=== PATIENT | male | born 1975 | race Caucasian/White ===

== ENCOUNTER 2016-11-17 13:56 | Emergency (ER) | payer OTHER, SELFPAY ==
[2016-11-17] MEDS ORDERED: Compazine 10 MG/2 ML IV ONE (14:25)
[2016-11-17] MEDS ORDERED: Sodium Chloride 0.9% 1000 ML 1,000 ML IV SCH (14:30)
[2016-11-17] MEDS ORDERED: Compazine 10 MG/2 ML ONE (14:35)
[2016-11-17] MEDS ORDERED: Sodium Chloride 0.9% 1000 ML 1,000 ML ONE (14:35)
[2016-11-17 14:42] LABS: BASOPHIL % 0.4 % (0.0-0.4); Eosinophil % 4.4 % (0.00-5.0); Granulocytes % 45.8 % (36.0-66.0); Lymphocytes % 37.8 % (24.0-44.0); Mean Cell Volume 86.9 fl (78-100); Mean Corpuscular Hemoglobin 29.4 pg (26-32); Mean Platelet Volume 9.5 fl (6-9.5); Monocytes % 11.6 % (0.0-12.0); Platelet Count 226 K/mm3 (150-450); Red Blood Count 4.89 M/mm3 (4.1-5.6); Red Cell Distribution Width 13.8 % (11.5-14.0); White Blood Count 8.1 K/mm3 (4.0-10.5)
--- NOTE | 2016-11-17 15:05 | ERPHSYRPT ---
- History of Present Illness Time Seen by Provider: 11/17/16 14:05 Source: patient Exam Limitations: no limitations Patient Subjective Stated Complaint: frontal headache x1 week Triage Nursing Assessment: frontal headache for one week. vomiting 3x daily for 2 days. photosensivity. delayed speech with appropriate answers. pupils danish. skin warm and dry. moist oral membranes Physician History: allyson tripped and fell at home a week ago hitting the back of his head; no loc ; no neck pain; no seizures; no prior hx; saw stars; developed a frontal LONG 3-4 days ago; worst LONG of life; no hx of LONG; nwo with N&V with LONG; no fever; no visual disturbance; sensitive to light and noises; no hx of migraines; LONG is throbbing 08/08 Occurred: last week (hiot head), days ago (3-4 days ago LONG started) Severity: severe Head Injury Location: frontal Method of Injury: direct blow Loss of Consciousness: no loss of consciousness, dazed Associated Symptoms: nausea, vomiting, headaches Allergies/Adverse Reactions: No Known Drug Allergies Allergy (Verified 11/17/16 14:15) Home Medications: Clonazepam 0.5 mg [Klonopin 0.5 MG] 0.5 mg PO TIDPRN PRN 03/09/16 [History ] Omeprazole [Prilosec] 20 mg PO DAILY 03/09/16 [History] Paliperidone Palmitate [Invega Sustenna 156 mg] 156 mg IM UD 03/09/16 [History] Metformin HCl 500 mg [Glucophage 500 MG] 500 mg PO BID 11/17/16 [History] Hx Tetanus, Diphtheria Vaccination/Date Given: Yes Hx Influenza Vaccination/Date Given: Yes Hx Pneumococcal Vaccination/Date Given: No Immunizations Up to Date: Yes - Review of Systems Constitutional: No Symptoms Eyes: Photophobia, No Eye Pain, No Eye Redness, No Vision Changes, No Double Vision Ears, Nose, & Throat: Hearing Changes (hypersensitive to noise), No Ear Pain, No Nose Pain, No Epistaxis, No Painful Swallowing Respiratory: No Cough, No Dyspnea, No Wheezing Cardiac: No Chest Pain, No Palpitations, No Syncope Abdominal/Gastrointestinal: Nausea, Vomiting, No Abdominal Pain, No Diarrhea Genitourinary Symptoms: No Symptoms Musculoskeletal: No Symptoms Skin: No Symptoms Neurological: Headache, No Dizziness, No Focal Weakness, No Gait Changes, No Paralysis, No Parasthesia, No Seizure, No Speech Changes Psychological: No Symptoms Endocrine: No Symptoms Hematologic/Lymphatic: No Symptoms Immunological/Allergic: No Symptoms - Past Medical History Pertinent Past Medical History: Yes Endocrine Medical History: Diabetes Type II Psycho-Social History: Depression - Past Surgical History Past Surgical History: No - Social History Smoking Status: Current every day smoker How long have you smoked: 20 Exposure to second hand smoke: No Alcohol Use: None Drug Use: none Patient Lives Alone: No Significant Family History: diabetes, hypertension - Nursing Vital Signs Nursing Vital Signs: Initial Vital Signs Temperature 98.3 F Temperature Source Oral Pulse Rate 73 Respiratory Rate 14 Blood Pressure [] 112/63 Pain Intensity 10 - [place] Coma Score Best Eye Response ([place]): (4) open spontaneously Best Verbal Response ([place]): (5) oriented Best Motor Response ([place]): (6) obeys commands [place] Total: 15 - Physical Exam General Appearance: moderate distress (LONG), alert Head Injury: no evidence of injury Eye Exam: bilateral eye: normal inspection, PERRL, EOMI, photophobia, other ( fundi benign; no papiledema) ENT Exam: airway nml, nml ext.inspection, No evidence of ENT injury, No dental injury, No hemotympanum, No clotted nasal blood Neck Exam: supple, trachea midline, full range of motion, normal alignment, normal inspection, No muscle spasm, No paraspinous muscle tender, No pain on movement of neck Cardiovascular/Respiratory Exam: chest non-tender, normal breath sounds, regular rate/rhythm, heart sounds normal, no ecchymosis, no JVD, no M/R/G, no respiratory distress Gastrointestinal/Abdominal Exam: soft, non tender, no distention, no mass, no guarding, normal bowel sounds, rebound Rectal Exam: deferred Back Exam: normal inspection, normal range of motion, No CVA tenderness, No vertebral tenderness, No rash Extremity Exam: non-tender, normal range of motion, normal inspection, normal capillary refill Mental Status Exam: alert, oriented x 3, 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 Exam: normal hearing, normal speech, PERRL, tongue midline Coordination/Gait Exam: normal gait, normal cerebellar function, negative Romberg's sign Motor/Sensory Exam: no motor deficit, no sensory deficit, no pronator drift, negative Babinski's sign, CN II-XII intact DTR Exam: knee (R): 4+, knee (L): 4+ Skin Exam: normal color, warm, dry, No rash - Course Nursing assessment & vital signs reviewed: Yes - CT Exams Head CT Interpretation: Negative, Tele-radiologist Report, No Fracture, No/ Intracranial Hemorrhag Ordered Tests: Active Orders 24 hr Category Date Time Status Obstetrics Nurse STAT Care 11/17/16 14:25 Active IV Insertion STAT Care 11/17/16 14:25 Active Oxygen-ED Only VENTI-MASK 40% Care 11/17/16 14:25 Active Re-Check Vital Signs STAT Care 11/17/16 14:28 Completed HEAD WITHOUT CONTRAST [CT] Stat Exams 11/17/16 14:25 Completed CBC W DIFF Stat Lab 11/17/16 14:37 Completed CMP Stat Lab 11/17/16 14:37 Completed PROTIME WITH INR Stat Lab 11/17/16 14:37 Completed Medication Summary Generic Name Dose Route Start Last Admin Trade Name Freq PRN Reason Stop Dose Admin Sodium Chloride 1,000 mls @ 100 mls/hr 11/17/16 14:30 11/17/16 14:36 Sodium Chloride 0.9% 1000 Ml IV 12/17/16 14:29 100 mls/hr .Q10H LINDA Administration Discontinued Medications Generic Name Dose Route Start Last Admin Trade Name Freq PRN Reason Stop Dose Admin Sodium Chloride Confirm 11/17/16 14:35 Sodium Chloride 0.9% 1000 Ml Administered 11/17/16 14:36 Dose 1,000 mls @ ud .ROUTE .STK-MED ONE Ketorolac Tromethamine 30 mg 11/17/16 15:20 11/17/16 15:25 Toradol 30 Mg Injection IV 11/17/16 15:21 30 mg STAT ONE Administration Ketorolac Tromethamine Confirm 11/17/16 15:22 Toradol 30 Mg Injection Administered 11/17/16 15:23 Dose 30 mg .ROUTE .STK-MED ONE Prochlorperazine Edisylate 5 mg 11/17/16 14:25 11/17/16 14:36 Compazine 10 Mg/2 Ml IV 11/17/16 14:26 5 mg STAT ONE Administration Prochlorperazine Edisylate Confirm 11/17/16 14:35 Compazine 10 Mg/2 Ml Administered 11/17/16 14:36 Dose 10 mg .ROUTE .STK-MED ONE Lab/Rad Data: Laboratory Result Diagrams 11/17/16 14:37 11/17/16 14:37 Laboratory Results 11/17/16 11/17/16 11/17/16 Range/Units 14:37 14:37 14:37 WBC 8.1 (4.0-10.5) K/mm3 RBC 4.89 (4.1-5.6) M/mm3 Hgb 14.4 (12.5-18.0) gm/dl Hct 42.5 (42-50) % MCV 86.9 (78-100) fl MCH 29.4 (26-32) pg MCHC 33.9 (32-36) g/dl RDW 13.8 (11.5-14.0) % Plt Count 226 (150-450) K/mm3 MPV 9.5 (6-9.5) fl Gran % 45.8 (36.0-66.0) % Lymphocytes % 37.8 (24.0-44.0) % Monocytes % 11.6 (0.0-12.0) % Eosinophils % 4.4 (0.00-5.0) % Basophils % 0.4 (0.0-0.4) % Basophils # 0.03 (0-0.4) INR 1.01 (0.8-3.0) Sodium 142 (136-145) mEq/L Potassium 3.8 (3.5-5.1) mEq/L Chloride 105 (98-107) mEq/L Carbon Dioxide 29.1 (21-32) mEq/L Anion Gap 11.8 (5-15) MEQ/L BUN 9 (9-20) mg/dL Creatinine 1.02 (0.55-1.30) mg/dl Estimated GFR > 60 ML/MIN Glucose 111 H (70-110) MG/DL Calcium 8.6 (8.5-10.1) mg/dL Total Bilirubin 0.2 (0.2-1.0) mg/dL AST 12 L (15-37) U/L ALT 33 (12-78) U/L Alkaline Phosphatase 64 (46-116) U/L Serum Total Protein 7.4 (6.4-8.2) gm/dL Albumin 3.6 (3.4-5.0) g/dL reviewed - Progress Progress: improved, re-examined (after meds and ct) Progress Note: 11/17/16 15:07 IV started, meds given; O2 applied; CT and labs pending; will recheck 11/17/16 15:16 no change to date; CT pending; lab pending; will monitor and recheck 11/17/16 15:19 CT negative; N&V resolved; LONG unchanged; will medicate 11/17/16 16:01 LONG resolved, N&V resolved; hypersenisitivity resolved; rsults discussed; treatment plan and instructions given Counseled pt/family regarding: lab results, diagnosis, need for follow-up, rad results - Departure Time of Disposition: 16:02 Departure Disposition: Home Clinical Impression: Headache, Concussion Condition: Stable Critical Care Time: No Referrals: MARILU JEAN [Primary Care Provider] - Instructions: Headache, Postconcussion Syndrome, Concussion Additional Instructions: rest; avoid bright lights and noises; Follow-up with family doctor as directed. Call for appointment. Return if any problems. If you smoke please stop. Call or follow up with your family doctor for assistance if you need it to stop. Please wear your seatbelt when driving. Have a nice day. Thank you for allowing us to participate in your care today. :o) Dr Frantz Flores Prescriptions: Naproxen Sodium [Anaprox Ds] 550 mg PO Q8HPRN PRN #10 tablet PRN Reason: Pain
--- NOTE | 2016-11-17 15:19 | XRAY ---
Indication: Head injury one week ago. Frontal headache. Multiple contiguous axial images obtained through the head without contrast. Comparison: August 30, 2013 Again normal appearing brain parenchyma, ventricles, and bony calvarium. Mild mucosal thickening of both ethmoid, both sphenoid, and left frontal sinuses without fluid leveling. Mastoid air cells are pneumatized and clear. Impression: Again no acute intracranial abnormalities. Incidental paranasal sinus disease. CT DI 51.54
[2016-11-17] MEDS ORDERED: TORAdol 30 mg Injection IV ONE (15:20)
[2016-11-17] MEDS ORDERED: TORAdol 30 mg Injection ONE (15:22)
[2016-11-17 15:32] LABS: INR 1.01 (0.8-3.0); PROTIME 11.3 SECONDS (8.83-12.87)
[2016-11-17 15:46] LABS: ALBUMIN 3.6 g/dL (3.4-5.0); ALKALINE PHOSPHATASE 64 U/L (46-116); ANION GAP 11.8 MEQ/L (5-15); BILIRUBIN,TOTAL 0.2 mg/dL (0.2-1.0); BLOOD UREA NITROGEN 9 mg/dL (9-20); CHLORIDE 105 mEq/L (98-107); Carbon Dioxide 29.1 mEq/L (21-32); Glucose 111 MG/DL (70-110); Potassium 3.8 mEq/L (3.5-5.1); SGOT/AST 12 U/L (15-37); SGPT/ALT 33 U/L (12-78); SODIUM 142 mEq/L (136-145); Total Protein 7.4 gm/dL (6.4-8.2)
[2016-11-17 16:09] VITALS: BP 135/73; PULSE 72; O2SAT 96
== END 2016-11-17 16:12 | disposition home or self-care (01) ==
LOC: ED 13:56
DX: R51 Headache (principal); S06.0X9A Concussion with loss of consciousness of unspecified duration, initial encounter; R11.2 Nausea with vomiting, unspecified; E11.9 Type 2 diabetes mellitus without complications; Z79.84 Long term (current) use of oral hypoglycemic drugs
CPT/HCPCS: 36000; 36415; 70450; 80053; 85025; 85610; 93041; 96360; 96361; 96374; 96375; 99283; J1885

== ENCOUNTER 2017-10-08 12:11 | Emergency (ER) | payer OTHER, SELFPAY ==
[2017-10-08 12:21] VITALS: BP 131/84; PULSE 88; O2SAT 95
--- NOTE | 2017-10-08 12:39 | ERPHSYRPT ---
- History of Present Illness Time Seen by Provider: 10/08/17 12:26 Source: patient Exam Limitations: no limitations Patient Subjective Stated Complaint: PT HERE FOR HIGH BLOOD SUGAR FOR 2 DAYS. STATES HE HAS BEEN THRISTY AND NO ENERGY FOR 2 DAYS Triage Nursing Assessment: PT WALKED IN RESP EASY, ALERT, SKIN W/D PINK, STATES HE TOOK METFORMIN AT 0800 TODAY Physician History: This is a 42-year-old white male he arrives with complaint that his blood sugars have been high for 2 days. He states last night his blood sugar was high Then this morning he took his blood sugar, his meter said high high high, he states he took his metformin ate some protein walked around. Rechecked his blood sugar and it was 400. Patient states he just hasn't been feeling well lately just, lack of motivation. Is not complaining of frequent urine he is not short of breath no belly pain no chest pain no fevers. Past medical history includes diabetes type 2, depression. Past surgical history is negative. Social history positive tobacco use. Timing/Duration: yesterday Severity: moderate Modifying Factors: Improves With: medication (patient took his metformin) Associated Symptoms: malaise, No nausea, No vomiting, No abdominal pain, No shortness of breath, No heartburn, No diaphoresis, No cough, No chills, No chest pain, No fever, No headaches, No loss of appetite, No rash, No syncope, No seizure, No weakness Allergies/Adverse Reactions: No Known Drug Allergies Allergy (Verified 10/08/17 12:22) Home Medications: Clonazepam 0.5 mg [Klonopin 0.5 MG] 0.5 mg PO TIDPRN PRN 03/09/16 [History ] Omeprazole [Prilosec] 20 mg PO DAILY 03/09/16 [History] Paliperidone Palmitate [Invega Sustenna 156 mg] 156 mg IM UD 03/09/16 [History] Metformin HCl 500 mg [Glucophage 500 MG] 500 mg PO BID 11/17/16 [History] Hx Tetanus, Diphtheria Vaccination/Date Given: No Hx Influenza Vaccination/Date Given: No Hx Pneumococcal Vaccination/Date Given: No Immunizations Up to Date: Yes - Review of Systems Constitutional: Malaise, No Fever, No Chills Eyes: No Symptoms, No Eye Pain, No Eye Redness, No Itchy, No Photophobia, No Tearing, No Vision Changes, No Double Vision, No Foreign Body Sensation Ears, Nose, & Throat: No Symptoms, No Ear Pain, No Ear Discharge, No Hearing Changes, No Tinnitus, No Nose Pain, No Nose Congestion, No Nose Discharge, No Sinus Drainage, No Epistaxis, No Mouth Pain, No Mouth Swelling, No Loose Teeth, No Throat Pain, No Throat Swelling, No Hoarse, No Painful Swallowing, No Snoring , No Stridor Respiratory: No Cough, No Cyanosis, No Dyspnea, No Dyspnea on Exertion (AVINA), No Stridor, No Wheezing Cardiac: No Chest Pain, No Edema, No Syncope Abdominal/Gastrointestinal: No Abdominal Pain, No Nausea, No Vomiting, No Diarrhea Genitourinary Symptoms: No Dysuria Musculoskeletal: No Back Pain, No Neck Pain Skin: No Rash Neurological: No Dizziness, No Focal Weakness, No Sensory Changes Psychological: No Symptoms Endocrine: No Symptoms All Other Systems: Reviewed and Negative - Past Medical History Pertinent Past Medical History: Yes Endocrine Medical History: Diabetes Type II Psycho-Social History: Depression - Past Surgical History Past Surgical History: No - Social History Smoking Status: Current every day smoker How long have you smoked: 20 Exposure to second hand smoke: Yes Alcohol Use: None Drug Use: none Patient Lives Alone: No Significant Family History: diabetes, hypertension - Nursing Vital Signs Nursing Vital Signs: Initial Vital Signs Temperature 97.2 F 10/08/17 12:17 Pulse Rate 88 10/08/17 12:17 Respiratory Rate 18 10/08/17 12:17 Blood Pressure 131/84 10/08/17 12:17 O2 Sat by Pulse Oximetry 95 10/08/17 12:17 Pain Scale Pain Intensity 0 - Physical Exam General Appearance: no apparent distress, alert Eye Exam: PERRL/EOMI, eyes nml inspection Ears, Nose, Throat Exam: normal ENT inspection, TMs normal, pharynx normal, moist mucous membranes Neck Exam: normal inspection, non-tender, supple, full range of motion Respiratory Exam: normal breath sounds, lungs clear, No respiratory distress Cardiovascular Exam: regular rate/rhythm, normal heart sounds, normal peripheral pulses Gastrointestinal/Abdomen Exam: soft, normal bowel sounds, No tenderness, No mass Back Exam: normal inspection, normal range of motion, No CVA tenderness, No vertebral tenderness Extremity Exam: normal inspection, normal range of motion, pelvis stable Neurologic Exam: alert, oriented x 3, cooperative, normal mood/affect, nml cerebellar function, nml station & gait, sensation nml, No motor deficits Skin Exam: normal color, warm, dry, No rash Lymphatic Exam: No adenopathy SpO2 Interpretation: normal (95%) SpO2: 95 Oxygen Delivery: Room Air - Course Nursing assessment & vital signs reviewed: Yes Ordered Tests: Active Orders 24 hr Category Date Time Status Accucheck STAT Care 10/08/17 12:33 Active - Progress Progress: improved Progress Note: 10/08/17 12:37 42-year-old white male arrives with complaint of having elevated blood sugars last night and this morning apparently this morning blood sugar was reading high high high on his meter. He contacted his mother told him the loss of protein, he took his metformin he walked. He states he rechecked his blood sugar and it was around 400. He has some general malaise otherwise she has not been feeling ill. Coming into the emergency room patient is noted have a Accu-Chek reading of 246. His vitals are stable. Patient without focal complaint. I've offered to give the patient a liter of normal saline check a blood count and a CMP he really does not want to do this. Will have the patient have his family bring in his Accu-Chek meter and have it compared to the meters here in the emergency room. 10/08/17 13:09 Patient's Accu-Chek meter is inaccurate as compared to this hospitals. Will write prescription for Accu-Chek and meter. - Departure Time of Disposition: 13:10 Departure Disposition: Home Clinical Impression: Accu-Chek meter malfunction Condition: Fair Critical Care Time: No Critical Care Time(excluding separately billable procedures): 30-74 minutes Referrals: MARILU JEAN [Primary Care Provider] - Additional Instructions: Return home. Check your glucose as directed by your family doctor. Follow-up with your family doctor. Return for acute distress or for severe symptoms.
== END 2017-10-08 13:21 | disposition home or self-care (01) ==
LOC: ED 12:11
DX: E11.65 Type 2 diabetes mellitus with hyperglycemia (principal); Y74.8 Miscellaneous general hospital and personal-use devices associated with adverse incidents, not elsewhere classified
CPT/HCPCS: 82962; 99282

== ENCOUNTER 2017-12-12 13:31 | Emergency (ER) | payer OTHER ==
[2017-12-12] MEDS ORDERED: BENADRYL 50 MG/ML IV ONE (14:06)
[2017-12-12] MEDS ORDERED: Sodium Chloride 0.9% 1000 ML 1,000 ML IV STA ×2 (14:06→16:52)
[2017-12-12] MEDS ORDERED: MORPHINE SULFATE 10 MG/ML IV ONE (14:06)
[2017-12-12] MEDS ORDERED: BENADRYL 50 MG/ML ONE (14:17)
[2017-12-12] MEDS ORDERED: MORPHINE SULFATE 10 MG/ML ONE (14:17)
[2017-12-12] MEDS ORDERED: Sodium Chloride 0.9% 1000 ML 1,000 ML ONE ×2 (14:18→16:52)
[2017-12-12 14:21] LABS: VBG BASE EXCESS -1.3 (-2.0-2.0); VBG CARBOXYHEMOGLOBIN 6.6 % T HGB (0.0-6.9); VBG HCO3- 22.8 meq/L (22-28); VBG HEMOGLOBIN 15.9; VBG O2 SATURATION 84.3 (95-100); VBG pH 7.41 (7.32-7.42)
[2017-12-12 14:27] LABS: BASOPHIL % 0.6 % (0.0-0.4); Basophil (Absolute #) 0.05 (0-0.4); Eosinophil % 1.3 % (0.00-5.0); Eosinophil (Absolute #) 0.11 (0-0.5); Granulocyte Absolute (ANC) 4.92 (1.4-6.9); Granulocytes % 59.8 % (36.0-66.0); Hematocrit 43.8 % (42-50); Hemoglobin 15.2 gm/dl (12.5-18.0); Lymphocytes % 29.1 % (24.0-44.0); Mean Cell Volume 84.6 fl (78-100); Mean Corpuscular Hemoglobin 29.3 pg (26-32); Mean Corpuscular Hgb Concent. 34.7 g/dl (32-36); Mean Platelet Volume 10.6 fl (6-9.5); Monocyte (Absolute #) 0.76 (0.0-1.3); Monocytes % 9.2 % (0.0-12.0); Platelet Count 256 K/mm3 (150-450); Red Blood Count 5.18 M/mm3 (4.1-5.6); Red Cell Distribution Width 13.2 % (11.5-14.0); White Blood Count 8.2 K/mm3 (4.0-10.5)
[2017-12-12 14:28] LABS: Appearance CLEAR (CLEAR); Bilirubin NEGATIVE (NEGATIVE); Glucose 1000 mg/dL (NEGATIVE); Ketones LARGE (NEGATIVE); Leukocyte Esterase NEGATIVE (NEGATIVE); Nitrite NEGATIVE (NEGATIVE); Protein,Urine Dip NEGATIVE (Negative); Urobilinogen NORMAL mg/dL (0-1)
[2017-12-12 14:36] LABS: Bacteria RARE /HPF (NEGATIVE); Epithelial Cells RARE /HPF (FEW); WBC 0-2 /HPF (0-5)
--- NOTE | 2017-12-12 14:41 | ERPHSYRPT ---
- History of Present Illness Time Seen by Provider: 12/12/17 13:36 Source: patient Patient Subjective Stated Complaint: PT REPORTS LOW LEFT BACK PAIN BEGINNING 2 DAYS AGO-DENIES DIFFICUTLY WITH URINATION OR BOWELS-DENIES LIFTING OR INJURY TO BACK Triage Nursing Assessment: PT PINK WARM ET DRY-NO BRUISING OR ABRASIONS NOTED- ABD SOFT ET NONTENDER TO PALP Physician History: CC: back pain Hx: 42 y/o patient of Dr Elkins with hx of Type 2 diabetes with no hx of DKA. He has left sided back pain for 2 days. No injury. Girlfriend worried it is his kidney. No fever or chills. Normal urination. No abd pain. Sugars have been up and down and poorly controlled. Pain is worse with movement. Moderately severe in nature. Timing/Duration: day(s) (2) Allergies/Adverse Reactions: No Known Drug Allergies Allergy (Verified 12/12/17 13:37) Home Medications: Clonazepam 0.5 mg [Klonopin 0.5 MG] 0.5 mg PO TIDPRN PRN 03/09/16 [History ] Omeprazole [Prilosec] 20 mg PO DAILY 03/09/16 [History] Metformin HCl 500 mg [Glucophage 500 MG] 500 mg PO BID 11/17/16 [History] Hx Tetanus, Diphtheria Vaccination/Date Given: No Hx Influenza Vaccination/Date Given: Yes (2016) Hx Pneumococcal Vaccination/Date Given: No Immunizations Up to Date: Yes - Review of Systems Constitutional: No Fever, No Chills Eyes: No Symptoms Ears, Nose, & Throat: No Symptoms Respiratory: No Cough, No Dyspnea Cardiac: No Chest Pain Abdominal/Gastrointestinal: No Abdominal Pain, No Nausea, No Vomiting Genitourinary Symptoms: Frequency, Flank Pain (left), No Dysuria, No Hematuria, No Testicle Pain Musculoskeletal: Back Pain Skin: No Rash Neurological: No Focal Weakness, No Headache, No Parasthesia All Other Systems: Reviewed and Negative - Past Medical History Pertinent Past Medical History: Yes Endocrine Medical History: Diabetes Type II Psycho-Social History: Depression - Past Surgical History Past Surgical History: No - Social History Smoking Status: Current every day smoker How long have you smoked: 20 Exposure to second hand smoke: Yes Alcohol Use: None Drug Use: none Patient Lives Alone: No Significant Family History: diabetes, hypertension - Nursing Vital Signs Nursing Vital Signs: Initial Vital Signs Temperature 97.4 F 12/12/17 13:39 Pulse Rate 90 12/12/17 13:39 Respiratory Rate 20 12/12/17 13:39 Blood Pressure 119/69 12/12/17 13:39 O2 Sat by Pulse Oximetry 98 12/12/17 13:39 Pain Scale Pain Intensity 10 - Physical Exam General Appearance: alert Eye Exam: PERRL/EOMI Ears, Nose, Throat Exam: dry mucous membranes Neck Exam: normal inspection, non-tender, supple Respiratory Exam: normal breath sounds, lungs clear Cardiovascular Exam: regular rate/rhythm, No murmur Gastrointestinal Exam: soft, No tenderness, No distention Male [place] Exam: normal genitalia, No testicular tenderness Back Exam: normal inspection, CVA tenderness (left), No vertebral tenderness Neurologic Exam: alert, oriented x 3, cooperative, 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 II-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 nml as tested, sensation nml, No motor deficits Skin Exam: warm, dry, No rash SpO2 Interpretation: normal SpO2: 98 Oxygen Delivery: Room Air - Course Nursing assessment & vital signs reviewed: Yes - CT Exams abd/pelvis CT Interpretation: Tele-radiologist Report (gallbladder sludge, no renal stone disease, normal appendix) Ordered Tests: Active Orders 24 hr Category Date Time Status Accucheck STAT Care 12/12/17 14:00 Active Clean Catch Urine Specimen STAT Care 12/12/17 13:59 Active IV Insertion STAT Care 12/12/17 14:06 Active 1800 Calorie ADA Diet 12/12/17 Dinner Active ABDOMEN AND PELVIS W/0 CONTRAS [CT] Stat Exams 12/12/17 14:51 Completed CBC W DIFF Stat Lab 12/12/17 14:21 Completed CMP Stat Lab 12/12/17 14:21 Completed Lactic Acid Stat Lab 12/12/17 14:06 Completed UA W/ MICROSCOPIC Stat Lab 12/12/17 14:00 Completed VENOUS BLOOD GAS Urgent Lab 12/12/17 14:08 Completed Medication Summary Generic Name Dose Route Start Last Admin Trade Name Freq PRN Reason Stop Dose Admin Sodium Chloride 1,000 mls @ 999 mls/hr 12/12/17 16:52 Sodium Chloride 0.9% 1000 Ml IV 12/12/17 17:52 .Q1H1M STA Discontinued Medications Generic Name Dose Route Start Last Admin Trade Name Jonathan PRN Reason Stop Dose Admin Diphenhydramine HCl 25 mg 12/12/17 14:06 12/12/17 14:18 Benadryl 50 Mg/Ml IV 12/12/17 14:07 25 mg STAT ONE Administration Diphenhydramine HCl Confirm 12/12/17 14:17 Benadryl 50 Mg/Ml Administered 12/12/17 14:18 Dose 50 mg .ROUTE .STK-MED ONE Sodium Chloride 1,000 mls @ 999 mls/hr 12/12/17 14:06 12/12/17 14:19 Sodium Chloride 0.9% 1000 Ml IV 12/12/17 15:06 999 mls/hr .Q1H1M STA Administration Sodium Chloride Confirm 12/12/17 14:18 Sodium Chloride 0.9% 1000 Ml Administered 12/12/17 14:19 Dose 1,000 mls @ ud .ROUTE .STK-MED ONE Sodium Chloride Confirm 12/12/17 16:52 Sodium Chloride 0.9% 1000 Ml Administered 12/12/17 16:53 Dose 1,000 mls @ ud .ROUTE .STK-MED ONE Insulin Aspart 5 unit 12/12/17 16:51 Novolog Insulin SQ 12/12/17 16:52 STAT ONE Morphine Sulfate 8 mg 12/12/17 14:06 12/12/17 14:18 Morphine Sulfate 10 Mg/Ml IV 12/12/17 14:07 8 mg STAT ONE Administration Morphine Sulfate Confirm 12/12/17 14:17 Morphine Sulfate 10 Mg/Ml Administered 12/12/17 14:18 Dose 10 mg .ROUTE .STK-MED ONE Lab/Rad Data: Laboratory Result Diagrams 12/12/17 14:21 12/12/17 14:21 Laboratory Results 12/12/17 12/12/17 12/12/17 Range/Units 14:21 14:21 14:08 WBC 8.2 (4.0-10.5) K/mm3 RBC 5.18 (4.1-5.6) M/mm3 Hgb 15.2 (12.5-18.0) gm/dl Hct 43.8 (42-50) % MCV 84.6 (78-100) fl MCH 29.3 (26-32) pg MCHC 34.7 (32-36) g/dl RDW 13.2 (11.5-14.0) % Plt Count 256 (150-450) K/mm3 MPV 10.6 H (6-9.5) fl Gran % 59.8 (36.0-66.0) % Lymphocytes % 29.1 (24.0-44.0) % Monocytes % 9.2 (0.0-12.0) % Eosinophils % 1.3 (0.00-5.0) % Basophils % 0.6 (0.0-0.4) % Basophils # 0.05 (0-0.4) VBG pH 7.41 (7.32-7.42) VBG pCO2 at Pat Temp 36 L (42-55) mm/Hg VBG pO2 at Pat Temp 40 (25-40) mm/Hg VBG HCO3 22.8 (22-28) meq/L VBG O2 Sat (Jumana) 84.3 L (95-100) VBG Base Excess -1.3 (-2.0-2.0) VBG Hemoglobin 15.9 VBG Carboxyhemoglobin 6.6 (0.0-6.9) % T HGB POC Potassium 4.0 (3.5-5.1) Sodium 129 L (136-145) mEq/L Potassium 3.9 (3.5-5.1) mEq/L Chloride 95 L (98-107) mEq/L Carbon Dioxide 22.1 (21-32) mEq/L Anion Gap 15.8 H (5-15) MEQ/L BUN 11 (9-20) mg/dL Creatinine 0.97 (0.55-1.30) mg/dl Estimated GFR > 60 ML/MIN Glucose 353 H (70-110) MG/DL Lactic Acid (0.4-2.0) Calcium 9.2 (8.5-10.1) mg/dL Total Bilirubin 0.40 (0.2-1.0) mg/dL AST 14 L (15-37) U/L ALT 20 (12-78) U/L Alkaline Phosphatase 100 (46-116) U/L Serum Total Protein 7.6 (6.4-8.2) gm/dL Albumin 3.5 (3.4-5.0) g/dL Ur Collection Type Urine Color (YELLOW) Urine Appearance (CLEAR) Urine pH (5-6) Ur Specific [place] (1.005-1.025) Urine Protein (Negative) Urine Ketones (NEGATIVE) Urine Blood (0-5) [place]/ul Urine Nitrite (NEGATIVE) Urine Bilirubin (NEGATIVE) Urine Urobilinogen (0-1) mg/dL Ur Leukocyte Esterase (NEGATIVE) Urine Microscopic RBC (0-2) /HPF Urine Microscopic WBC (0-5) /HPF Ur Epithelial Cells (FEW) /HPF Urine Bacteria (NEGATIVE) /HPF Urine Culture Reflexed (NO) Urine Glucose (NEGATIVE) mg/dL Specimen Received 12/12/17 12/12/17 Range/Units 14:06 14:00 WBC (4.0-10.5) K/mm3 RBC (4.1-5.6) M/mm3 Hgb (12.5-18.0) gm/dl Hct (42-50) % MCV (78-100) fl MCH (26-32) pg MCHC (32-36) g/dl RDW (11.5-14.0) % Plt Count (150-450) K/mm3 MPV (6-9.5) fl Gran % (36.0-66.0) % Lymphocytes % (24.0-44.0) % Monocytes % (0.0-12.0) % Eosinophils % (0.00-5.0) % Basophils % (0.0-0.4) % Basophils # (0-0.4) VBG pH (7.32-7.42) VBG pCO2 at Pat Temp (42-55) mm/Hg VBG pO2 at Pat Temp (25-40) mm/Hg VBG HCO3 (22-28) meq/L VBG O2 Sat (Jumana) (95-100) VBG Base Excess (-2.0-2.0) VBG Hemoglobin VBG Carboxyhemoglobin (0.0-6.9) % T HGB POC Potassium (3.5-5.1) Sodium (136-145) mEq/L Potassium (3.5-5.1) mEq/L Chloride (98-107) mEq/L Carbon Dioxide (21-32) mEq/L Anion Gap (5-15) MEQ/L BUN (9-20) mg/dL Creatinine (0.55-1.30) mg/dl Estimated GFR ML/MIN Glucose (70-110) MG/DL Lactic Acid 1.1 (0.4-2.0) Calcium (8.5-10.1) mg/dL Total Bilirubin (0.2-1.0) mg/dL AST (15-37) U/L ALT (12-78) U/L Alkaline Phosphatase (46-116) U/L Serum Total Protein (6.4-8.2) gm/dL Albumin (3.4-5.0) g/dL Ur Collection Type VOID Urine Color YELLOW (YELLOW) Urine Appearance CLEAR (CLEAR) Urine pH 5.0 (5-6) Ur Specific [place] 1.020 (1.005-1.025) Urine Protein NEGATIVE (Negative) Urine Ketones LARGE (NEGATIVE) Urine Blood 5-10 (0-5) [place]/ul Urine Nitrite NEGATIVE (NEGATIVE) Urine Bilirubin NEGATIVE (NEGATIVE) Urine Urobilinogen NORMAL (0-1) mg/dL Ur Leukocyte Esterase NEGATIVE (NEGATIVE) Urine Microscopic RBC 0-2 (0-2) /HPF Urine Microscopic WBC 0-2 (0-5) /HPF Ur Epithelial Cells RARE (FEW) /HPF Urine Bacteria RARE (NEGATIVE) /HPF Urine Culture Reflexed NO (NO) Urine Glucose 1000 (NEGATIVE) mg/dL Specimen Received 12/12/17 1400 - Progress Progress Note: 12/12/17 16:58 Pain better after meds. He was given 2 L NS. He reports running out of his metformin yesterday so has been off meds. No hx of DKA. He reports being type 2 diabetic. Unsure etiology of left back pain. Insulin and IVF bolus given. Will Rx metfomrin. He has insurance HIP prelim thru hospital counsellor. Appt made to see Dr Severo Maldonado. Advised return for problems. pH normal. Want to make sure he is not slipping into DKA. Counseled pt/family regarding: lab results, diagnosis, need for follow-up, rad results - Departure Time of Disposition: 16:59 Departure Disposition: Home Clinical Impression: Left-sided back pain, type 2 diabetes out of control Condition: Fair Critical Care Time: No Referrals: MARILU ELKINS [Primary Care Provider] - Instructions: Low Back Pain (DC) Additional Instructions: Rx metformin to [facility]. Rx ibuprofen for pain. See Dr Elkins Thursday at 1PM. Return for fever, concerns. Get metformin and restart tonite. Prescriptions: Ibuprofen 600 mg PO Q6H PRN PRN #14 tablet PRN Reason: Pain Metformin HCl 1 tab PO BID #60 tablet
[2017-12-12 14:47] LABS: ALBUMIN 3.5 g/dL (3.4-5.0); ALKALINE PHOSPHATASE 100 U/L (46-116); ANION GAP 15.8 MEQ/L (5-15); BLOOD UREA NITROGEN 11 mg/dL (9-20); CHLORIDE 95 mEq/L (98-107); Calcium 9.2 mg/dL (8.5-10.1); Carbon Dioxide 22.1 mEq/L (21-32); Creatinine 1 0.97 mg/dl (0.55-1.30); EST GLOMERULAR FILTRATION RATE > 60 ML/MIN; Glucose 353 MG/DL (70-110); Potassium 3.9 mEq/L (3.5-5.1); SGOT/AST 14 U/L (15-37); SGPT/ALT 20 U/L (12-78); SODIUM 129 mEq/L (136-145); Total Protein 7.6 gm/dL (6.4-8.2)
--- NOTE | 2017-12-12 15:22 | XRAY ---
Indication: Left lower flank pain. Multiple contiguous axial images obtained through the abdomen and pelvis without contrast as ordered. Comparison: August 30, 2013. Lung bases again demonstrates mild bibasilar dependent atelectasis. No infiltrate or effusion. Heart is not enlarged. Noncontrasted stomach and bowel loops appear nonobstructed. There is worsening moderate/marked diffuse scattered colonic fecal debris throughout. Again appendicolith without features for appendicitis. No free fluid/air. Gallbladder contracted with now dense lumen possibly sludge/gravel. No abnormal biliary distention. Remaining liver, pancreas, spleen, adrenal glands, kidneys, ureters, bladder, and aorta appear unremarkable for noncontrast exam. Osseous structures intact. Impression: 1. Worsening fecal stasis again without obstruction. 2. Possible gallbladder sludge/gravel. 3. Appendicolith without appendicitis. 4. No acute intra-abdominal/pelvic abnormalities on this noncontrast exam. CT DI 20.94
[2017-12-12] MEDS ORDERED: NovoLOG Insulin SQ ONE (16:51)
[2017-12-12] MEDS ORDERED: NovoLOG Insulin ONE (17:12)
[2017-12-12 18:17] VITALS: BP 134/80; PULSE 78; O2SAT 98
== END 2017-12-12 18:16 | disposition home or self-care (01) ==
LOC: ED 13:31
DX: M54.5 Low back pain (principal); E13.65 Other specified diabetes mellitus with hyperglycemia; Z79.899 Other long term (current) drug therapy; Z79.84 Long term (current) use of oral hypoglycemic drugs
CPT/HCPCS: 36000; 36415; 74176; 80053; 81000; 82805; 82962; 83605; 85025; 96360; 96361; 96374; 96375; 99284; J1200; J2270; A9270-GY

== ENCOUNTER 2018-06-02 18:04 | Emergency (ER) | payer OTHER ==
[2018-06-02 19:07] LABS: BASOPHIL % 0.7 % (0.0-0.4); Basophil (Absolute #) 0.06 (0-0.4); Eosinophil % 3.9 % (0.00-5.0); Eosinophil (Absolute #) 0.35 (0-0.5); Granulocyte Absolute (ANC) 5.15 (1.4-6.9); Granulocytes % 56.6 % (36.0-66.0); Hematocrit 39.9 % (42-50); Hemoglobin 13.9 gm/dl (12.5-18.0); Lymphocyte (Absolute #) 2.92 (1.0-4.6); Lymphocytes % 32.1 % (24.0-44.0); Mean Cell Volume 87.1 fl (78-100); Mean Corpuscular Hemoglobin 30.3 pg (26-32); Mean Corpuscular Hgb Concent. 34.8 g/dl (32-36); Mean Platelet Volume 10.1 fl (6-9.5); Monocyte (Absolute #) 0.61 (0.0-1.3); Monocytes % 6.7 % (0.0-12.0); Platelet Count 220 K/mm3 (150-450); Red Blood Count 4.58 M/mm3 (4.1-5.6); Red Cell Distribution Width 14.2 % (11.5-14.0); White Blood Count 9.1 K/mm3 (4.0-10.5)
--- NOTE | 2018-06-02 19:11 | ERPHSYRPT ---
- History of Present Illness Time Seen by Provider: 06/02/18 19:05 Historian: patient Exam Limitations: no limitations Patient Subjective Stated Complaint: here for abd pain that radiates to back for a couple days now, with n/v/d, no fever Triage Nursing Assessment: pt alert, walked in, resp easy, abd soft, no edema, skin w/d/p Allergies/Adverse Reactions: No Known Drug Allergies Allergy (Verified 06/02/18 18:14) Home Medications: Clonazepam 0.5 mg [Klonopin 0.5 MG] 0.5 mg PO TIDPRN PRN 03/09/16 [History ] Omeprazole [Prilosec] 20 mg PO DAILY 03/09/16 [History] Metformin HCl 500 mg [Glucophage 500 MG] 500 mg PO BID 11/17/16 [History] Hx Tetanus, Diphtheria Vaccination/Date Given: No Hx Influenza Vaccination/Date Given: Yes Hx Pneumococcal Vaccination/Date Given: No Immunizations Up to Date: Yes - Past Medical History Pertinent Past Medical History: Yes Endocrine Medical History: Diabetes Type II Psycho-Social History: Depression - Past Surgical History Past Surgical History: No - Social History Smoking Status: Current every day smoker How long have you smoked: 20 Exposure to second hand smoke: Yes Alcohol Use: None Drug Use: none Patient Lives Alone: No Significant Family History: diabetes, hypertension - Nursing Vital Signs Nursing Vital Signs: Initial Vital Signs Temperature 98.0 F 06/02/18 18:08 Pulse Rate 94 H 06/02/18 18:08 Respiratory Rate 16 06/02/18 18:08 Blood Pressure 110/66 06/02/18 18:08 O2 Sat by Pulse Oximetry 98 06/02/18 18:08 Pain Scale Pain Intensity 10 - Physical Exam SpO2: 98 Oxygen Delivery: Room Air - Radiology Exams Abdomen X-ray Interpretation: Teleradiologist Report, Other (no obstruction noted) Ordered Tests: Active Orders 24 hr Category Date Time Status ACCUCHECK [Accucheck] STAT Care 06/02/18 21:21 Active OBSTR/ACUTE ABDOMEN SERIES Stat Exams 06/02/18 20:10 Completed CBC W DIFF Stat Lab 06/02/18 18:40 Completed CMP Stat Lab 06/02/18 18:40 Completed ETHYL ALCOHOL Stat Lab 06/02/18 18:41 Completed LIPASE Stat Lab 06/02/18 18:40 Completed UA W/ MICROSCOPIC Stat Lab 06/02/18 19:00 Completed Urine Triage Profile Stat Lab 06/02/18 19:00 Completed Medication Summary Discontinued Medications Generic Name Dose Route Start Last Admin Trade Name Nealq PRN Reason Stop Dose Admin Famotidine 20 mg 06/02/18 19:12 06/02/18 19:39 Pepcid 20 Mg Vial IV 06/02/18 19:13 20 mg STAT ONE Administration Famotidine Confirm 06/02/18 19:33 Pepcid 20 Mg Vial Administered 06/02/18 19:34 Dose 20 mg IV .STK-MED ONE Sodium Chloride 1,000 mls @ 999 mls/hr 06/02/18 19:12 06/02/18 19:35 Sodium Chloride 0.9% 1000 Ml IV 06/02/18 20:12 999 mls/hr .Q1H1M STA Administration Sodium Chloride Confirm 06/02/18 19:33 Sodium Chloride 0.9% 1000 Ml Administered 06/02/18 19:34 Dose 1,000 mls @ ud .ROUTE .STK-MED ONE Ondansetron HCl 4 mg 06/02/18 19:12 06/02/18 19:37 Zofran 4 Mg/2 Ml Vial IV 06/02/18 19:13 4 mg STAT ONE Administration Ondansetron HCl Confirm 06/02/18 19:33 Zofran 4 Mg/2 Ml Vial Administered 06/02/18 19:34 Dose 4 mg .ROUTE .STK-MED ONE Thiamine HCl 100 mg 06/02/18 19:12 06/02/18 19:42 Thiamine 200 Mg/2 Ml IV 06/02/18 19:13 100 mg STAT ONE Administration Thiamine HCl Confirm 06/02/18 19:33 Thiamine 200 Mg/2 Ml Administered 06/02/18 19:34 Dose 200 mg .ROUTE .STK-MED ONE Lab/Rad Data: Laboratory Result Diagrams 06/02/18 18:40 06/02/18 18:40 Laboratory Results 06/02/18 06/02/18 06/02/18 Range/Units 19:00 19:00 18:41 WBC (4.0-10.5) K/mm3 RBC (4.1-5.6) M/mm3 Hgb (12.5-18.0) gm/dl Hct (42-50) % MCV (78-100) fl MCH (26-32) pg MCHC (32-36) g/dl RDW (11.5-14.0) % Plt Count (150-450) K/mm3 MPV (6-9.5) fl Gran % (36.0-66.0) % Eos # (Auto) (0-0.5) Absolute Lymphs (auto) (1.0-4.6) Absolute Monos (auto) (0.0-1.3) Lymphocytes % (24.0-44.0) % Monocytes % (0.0-12.0) % Eosinophils % (0.00-5.0) % Basophils % (0.0-0.4) % Absolute Granulocytes (1.4-6.9) Basophils # (0-0.4) Sodium (137-145) mmol/L Potassium (3.5-5.1) mmol/L Chloride (98-107) mmol/L Carbon Dioxide (22-30) mmol/L Anion Gap (5-15) MEQ/L BUN (9-20) mg/dL Creatinine (0.66-1.25) mg/dL Estimated GFR ML/MIN Glucose (74-106) mg/dL Calcium (8.4-10.2) mg/dL Total Bilirubin (0.2-1.3) mg/dL AST (17-59) U/L ALT (0-50) U/L Alkaline Phosphatase (38-126) U/L Serum Total Protein (6.3-8.2) g/dL Albumin (3.5-5.0) g/dL Lipase (23-300) U/L Ur Collection Type VOID Urine Color YELLOW (YELLOW) Urine Appearance CLEAR (CLEAR) Urine pH 7.0 (5-6) Ur Specific [place] 1.015 (1.005-1.025) Urine Protein NEGATIVE (Negative) Urine Ketones NEGATIVE (NEGATIVE) Urine Blood NEGATIVE (0-5) Sedrick/ul Urine Nitrite NEGATIVE (NEGATIVE) Urine Bilirubin NEGATIVE (NEGATIVE) Urine Urobilinogen NORMAL (0-1) mg/dL Ur Leukocyte Esterase NEGATIVE (NEGATIVE) Ur Epithelial Cells RARE (FEW) /HPF Urine Culture Reflexed NO (NO) Urine Glucose 1000 (NEGATIVE) mg/dL Urine Opiates Level NEGATIVE (NEGATIVE) Ur Methadone NEGATIVE (NEGATIVE) Urine Barbiturates NEGATIVE (NEGATIVE) Ur Phencyclidine (PCP) NEGATIVE (NEGATIVE) Urine Amphetamine NEGATIVE (NEGATIVE) U Benzodiazepine Level NEGATIVE (NEGATIVE) Urine Cocaine NEGATIVE (NEGATIVE) Urine Marijuana (THC) NEGATIVE (NEGATIVE) Ethyl Alcohol < 10 (0-10) mg/dL Specimen Received 06/02/18 19106/02/18 06/02/18 Range/Units 18:40 18:40 WBC 9.1 (4.0-10.5) K/mm3 RBC 4.58 (4.1-5.6) M/mm3 Hgb 13.9 (12.5-18.0) gm/dl Hct 39.9 L (42-50) % MCV 87.1 (78-100) fl MCH 30.3 (26-32) pg MCHC 34.8 (32-36) g/dl RDW 14.2 H (11.5-14.0) % Plt Count 220 (150-450) K/mm3 MPV 10.1 H (6-9.5) fl Gran % 56.6 (36.0-66.0) % Eos # (Auto) 0.35 (0-0.5) Absolute Lymphs (auto) 2.92 (1.0-4.6) Absolute Monos (auto) 0.61 (0.0-1.3) Lymphocytes % 32.1 (24.0-44.0) % Monocytes % 6.7 (0.0-12.0) % Eosinophils % 3.9 (0.00-5.0) % Basophils % 0.7 (0.0-0.4) % Absolute Granulocytes 5.15 (1.4-6.9) Basophils # 0.06 (0-0.4) Sodium 138 (137-145) mmol/L Potassium 4.1 (3.5-5.1) mmol/L Chloride 105 (98-107) mmol/L Carbon Dioxide 24 (22-30) mmol/L Anion Gap 13.1 (5-15) MEQ/L BUN 12 (9-20) mg/dL Creatinine 0.73 (0.66-1.25) mg/dL Estimated GFR > 60.0 ML/MIN Glucose 315 H (74-106) mg/dL Calcium 9.3 (8.4-10.2) mg/dL Total Bilirubin 0.30 (0.2-1.3) mg/dL AST 14 L (17-59) U/L ALT 17 (0-50) U/L Alkaline Phosphatase 62 (38-126) U/L Serum Total Protein 6.8 (6.3-8.2) g/dL Albumin 4.0 (3.5-5.0) g/dL Lipase 54 (23-300) U/L Ur Collection Type Urine Color (YELLOW) Urine Appearance (CLEAR) Urine pH (5-6) Ur Specific [place] (1.005-1.025) Urine Protein (Negative) Urine Ketones (NEGATIVE) Urine Blood (0-5) Sedrick/ul Urine Nitrite (NEGATIVE) Urine Bilirubin (NEGATIVE) Urine Urobilinogen (0-1) mg/dL Ur Leukocyte Esterase (NEGATIVE) Ur Epithelial Cells (FEW) /HPF Urine Culture Reflexed (NO) Urine Glucose (NEGATIVE) mg/dL Urine Opiates Level (NEGATIVE) Ur Methadone (NEGATIVE) Urine Barbiturates (NEGATIVE) Ur Phencyclidine (PCP) (NEGATIVE) Urine Amphetamine (NEGATIVE) U Benzodiazepine Level (NEGATIVE) Urine Cocaine (NEGATIVE) Urine Marijuana (THC) (NEGATIVE) Ethyl Alcohol (0-10) mg/dL Specimen Received - Progress Progress: improved Progress Note: 06/02/18 21:42 patient was given IV fluids, Zofran, Pepcid, in which he states he feels much better. Accu-Chek showed improvement of blood glucose from 315 to 222 prior to discharge 06/02/18 21:43 Counseled pt/family regarding: lab results, diagnosis, rad results - Departure Time of Disposition: 21:44 Departure Disposition: Home Clinical Impression: Gastroenteritis, Hyperglycemia Condition: Stable Critical Care Time: No Referrals: MARILU JEAN [Primary Care Provider] - Instructions: Viral Gastroenteritis, Hyperglycemia, Adult Additional Instructions: Rx: Zofran. Drink plenty of clear liquids for next 1-2 days Return for worse abdominal pain, vomiting, diarrhea, fever, dizziness, weakness or any problems Prescriptions: Ondansetron [Zofran Odt] 4 mg PO Q6-8HPRN PRN #10 tab.rapdis PRN Reason: Nausea/Vomiting
[2018-06-02] MEDS ORDERED: THIAMINE 200 MG/2 ML IV ONE (19:12)
[2018-06-02] MEDS ORDERED: Zofran 4 MG/2 ML VIAL IV ONE (19:12)
[2018-06-02] MEDS ORDERED: Pepcid 20 MG VIAL IV ONE ×2 (19:12→19:33)
[2018-06-02] MEDS ORDERED: Sodium Chloride 0.9% 1000 ML 1,000 ML IV STA (19:12)
[2018-06-02 19:22] LABS: Amphetamine,Urine NEGATIVE (NEGATIVE); Barbiturate,Urine NEGATIVE (NEGATIVE); Benzodiazepine,Urine NEGATIVE (NEGATIVE); Cocaine,Urine NEGATIVE (NEGATIVE); Methadone,Urine NEGATIVE (NEGATIVE); Opiate,Urine NEGATIVE (NEGATIVE); PCP,Urine NEGATIVE (NEGATIVE); THC,Urine NEGATIVE (NEGATIVE)
[2018-06-02 19:26] LABS: Appearance CLEAR (CLEAR); Glucose 1000 mg/dL (NEGATIVE); Leukocyte Esterase NEGATIVE (NEGATIVE); Nitrite NEGATIVE (NEGATIVE); Protein,Urine Dip NEGATIVE (Negative); Specific Gravity 1.015 (1.005-1.025); Urobilinogen NORMAL mg/dL (0-1)
[2018-06-02 19:27] LABS: Bilirubin NEGATIVE (NEGATIVE); Blood NEGATIVE Ery/ul (0-5); Epithelial Cells RARE /HPF (FEW); Ketones NEGATIVE (NEGATIVE)
[2018-06-02 19:28] LABS: ALKALINE PHOSPHATASE 62 U/L (38-126); ANION GAP 13.1 MEQ/L (5-15); BLOOD UREA NITROGEN 12 mg/dL (9-20); CHLORIDE 105 mmol/L (98-107); Calcium 9.3 mg/dL (8.4-10.2); Carbon Dioxide 24 mmol/L (22-30); Creatinine 1 0.73 mg/dL (0.66-1.25); Glucose 315 mg/dL (74-106); LIPASE 54 U/L (23-300); Potassium 4.1 mmol/L (3.5-5.1); SGOT/AST 14 U/L (17-59); SGPT/ALT 17 U/L (0-50); SODIUM 138 mmol/L (137-145); Total Protein 6.8 g/dL (6.3-8.2)
[2018-06-02] MEDS ORDERED: THIAMINE 200 MG/2 ML ONE (19:33)
[2018-06-02] MEDS ORDERED: Zofran 4 MG/2 ML VIAL ONE (19:33)
[2018-06-02] MEDS ORDERED: Sodium Chloride 0.9% 1000 ML 1,000 ML ONE (19:33)
--- NOTE | 2018-06-02 21:30 | XRAY ---
Indication: Abdominal pain. Comparison: None 2 views of the abdomen demonstrates moderate fecal debris in the right hemicolon. No focal bowel dilatation, obstruction, or free air. Left pelvic phlebolith. Solid organs and osseous structures unremarkable. Single PA chest demonstrates normal heart, lungs, and bony thorax. Impression: Fecal stasis without obstruction. Nonacute 1 view chest.
[2018-06-02 21:54] VITALS: BP 136/76; PULSE 75; O2SAT 99
== END 2018-06-02 21:55 | disposition home or self-care (01) ==
LOC: ED 18:04
DX: K52.9 Noninfective gastroenteritis and colitis, unspecified (principal); E11.65 Type 2 diabetes mellitus with hyperglycemia; Z79.84 Long term (current) use of oral hypoglycemic drugs
CPT/HCPCS: 36000; 36415; 74022; 80053; 80307; 81000; 82962; 83690; 85025; 96360; 96374; 96375; 99284; J2405; G0480

== ENCOUNTER 2024-06-25 17:07 | Emergency (ER) | payer OTHER ==
[2024-06-25 17:17] VITALS: TEMP 96.9; O2SAT 98
--- NOTE | 2024-06-25 17:45 | ERPHSYRPT ---
- History of Present Illness Time Seen by Provider: 06/25/24 17:20 Source: patient Exam Limitations: no limitations Patient Subjective Stated Complaint: C/O FALL TODAY AT [facility]. Patient fell at 5am today and hit the base of his skull on the footboard of a bed. He began c/o headache around 3pm today and was given 650mg of tylenol. Headache resolved with tylenol. Triage Nursing Assessment: Patient arrived by ambulance. He is alert and oriented. Transferred self from ambulance cot to ER bed. Denies any pain. No skin alterations noted to head or neck. Physician History: [facility] a [facility]. Patient states his left leg buckled as it occasionally does. However this time patient fell at 5 AM. Patient hit the back of his head and neck on the baseboard of his bed. However patient later developed neck pain and a slight headache. Patient was sent to our ED for evaluation. In 5 is requesting CAT scans. Patient states he feels well he declined pain medication. Patient denies other injuries. Pain described as an ache that is localized. No radiation. Pain worse with movement and palpation pain improved with rest. Patient voices no other complaints or concerns at this time. Portions of this note were created with voice recognition technology. There may be grammatical, spelling, punctuation or sound alike errors Timing/Duration: today Severity: moderate Modifying Factors: Improves With: nothing Associated Symptoms: denies symptoms Allergies/Adverse Reactions: No Known Drug Allergies Allergy (Verified 06/25/24 17:08) Home Medications: Famotidine 20 mg [Pepcid 20 MG] 20 mg PO BID 06/25/24 [History] Gabapentin 600 mg PO TID 06/25/24 [History] Insulin Glargine [Lantus Insulin] 15 unit SQ DAILY 06/25/24 [History] Insulin Lispro [Humalog] 7 unit SQ AC 06/25/24 [History] Melatonin 10 mg PO HS 06/25/24 [History] Metformin HCl 500 mg [Glucophage 500 MG] 500 mg PO BID 06/25/24 [History] Metoclopramide HCl 5 mg PO BID 06/25/24 [History] Mirtazapine 30 mg [Remeron 30 mg] 30 mg PO HS 06/25/24 [History] Pantoprazole 20 mg [Protonix 20MG Tablet] 40 mg PO BID 06/25/24 [History] Prazosin HCl 5 mg PO HS 06/25/24 [History] Sucralfate 1 gm [Carafate 1 GM] 1 g PO QID 06/25/24 [History] hydrOXYzine pamoate [Hydroxyzine Pamoate] 50 mg PO BID 06/25/24 [History] Hx Tetanus, Diphtheria Vaccination/Date Given: Yes Hx Influenza Vaccination/Date Given: Yes Hx Pneumococcal Vaccination/Date Given: No Immunizations Up to Date: Yes Travel Risk - International Travel Have you traveled outside of the country in past 3 weeks: No - Emerging Infectious Disease Are you exhibiting symptoms associated with any current EIDs: No - Review of Systems Constitutional: No Symptoms, No Fever, No Chills Eyes: No Symptoms Ears, Nose, & Throat: No Symptoms Respiratory: No Symptoms, No Cough, No Dyspnea Cardiac: No Symptoms, No Chest Pain, No Edema, No Syncope Abdominal/Gastrointestinal: No Symptoms, No Abdominal Pain, No Nausea, No Vomiting, No Diarrhea Genitourinary Symptoms: No Symptoms, No Dysuria Musculoskeletal: No Symptoms, No Back Pain, No Neck Pain Skin: No Symptoms, No Rash Neurological: No Symptoms, No Dizziness, No Focal Weakness, No Sensory Changes Psychological: No Symptoms Endocrine: No Symptoms Hematologic/Lymphatic: No Symptoms All Other Systems: Reviewed and Negative - Past Medical History Pertinent Past Medical History: Yes Endocrine Medical History: Diabetes Type II Psycho-Social History: Anxiety, Bipolar, Depression Other Medical History: unspecified intellectual disabilities - Past Surgical History Past Surgical History: Yes Significant Family History: diabetes, hypertension - Social History Smoking Status: Current every day smoker How long have you smoked: 20 Exposure to second hand smoke: Yes Alcohol Use: None Drug Use: none Patient Lives Alone: No - Social Determinants of Health Will the patient participate in the screening: Declined to provide - Nursing Vital Signs Nursing Vital Signs: Initial Vital Signs Temperature 96.9 F 06/25/24 17:10 Pulse Rate 77 06/25/24 17:10 Respiratory Rate 17 06/25/24 17:10 Blood Pressure 128/58 06/25/24 17:10 O2 Sat by Pulse Oximetry 98 06/25/24 17:10 Pain Scale Pain Intensity 0 - Physical Exam General Appearance: no apparent distress, alert Eye Exam: PERRL/EOMI, eyes nml inspection Ears, Nose, Throat Exam: normal ENT inspection, TMs normal, pharynx normal, moist mucous membranes Neck Exam: normal inspection, non-tender, supple, full range of motion Respiratory Exam: normal breath sounds, lungs clear, airway intact, No respiratory distress Cardiovascular Exam: regular rate/rhythm, normal heart sounds, normal peripheral pulses Gastrointestinal/Abdomen Exam: soft, normal bowel sounds, No tenderness, No mass Back Exam: normal inspection, normal range of motion, No CVA tenderness, No vertebral tenderness Extremity Exam: normal inspection, normal range of motion, pelvis stable Neurologic Exam: alert, oriented x 3, cooperative, normal mood/affect, sensation nml, No motor deficits Skin Exam: normal color, warm, dry, No rash Lymphatic Exam: No adenopathy SpO2 Interpretation: normal SpO2: 98 O2 Delivery: Room Air - Course Nursing assessment & vital signs reviewed: Yes Ordered Tests: Active Orders 24 hr Category Date Time Status CERVICAL SPINE WO CONTRAST [CT] Stat Exams 06/25/24 17:13 Taken HEAD WITHOUT CONTRAST [CT] Stat Exams 06/25/24 17:13 Taken - Progress Progress: improved Progress Note: 49-year-old male presents to our ED for CT scan of head and neck status post fall. No acute intracranial pathology. Incidental worsening pansinusitis. A prescription for Augmentin forwarded to patient's pharmacy. CT cervical spine reveals C5-C6 degenerative disc disease. Patient requested Toradol for pain control. Toradol administered. Prescription for Toradol forwarded to patient's pharmacy. Patient otherwise feels well. He voices no other complaints or concerns at this time. Will discharge home. Patient agrees to follow-up with his primary care doctor within 48 hours for reevaluation. Portions of this note were created with voice recognition technology. There may be grammatical, spelling, punctuation or sound alike errors Complexity problem addressed is moderate acute complicated no critical care time. Complex of data reviewed and analyzed is moderate. Test ordered test reviewed results analyzed and correlated clinically with history and physical exam. Risk of complication at risk of morbidity/mortality patient management is moderate. Vital stable time spent to discharge patient approximately 20 minutes. Plan of care established for shared decision making. No social determinants of health present impede follow-up. Portions of this note were created with voice recognition technology. There may be grammatical, spelling, punctuation or sound alike errors 06/25/24 19:07 06/25/24 19:08 Counseled pt/family regarding: diagnosis, need for follow-up, rad results - Departure Departure Disposition: Home Clinical Impression: Fall, Sinusitis, Degenerative disc disease, Cervical strain Condition: Stable Critical Care Time: No Referrals: MARILU JEAN [Primary Care Provider] - Follow up/PCP as directed Additional Instructions: Discharge/Care Plan IKE ROTH was seen on 06/25/24 in the Emergency Room. The patient was counseled regarding Diagnosis,Lab results, Imaging studies, need for follow up and when to return to the Emergency Room. Prescriptions given: Discharge Note I have spoken with the patient and/or caregivers. I have explained the patient's condition, diagnosis and treatment plan based on the information available to me at this time. I have answered the patient's and/or caregiver's questions and addressed any concerns. The patient and/or caregivers have as good understanding of the patient's diagnosis, condition and treatment plan as can be expected at this point. The vital signs have been stable. The patient's condition is stable and appropriate for discharge from the emergency department. The patient will pursue further outpatient evaluation with the primary care physician or other designated or consulting physician as outlined in the discharge instructions. The patient and/or caregivers are agreeable to this plan of care and follow-up instructions have been explained in detail. The patient and/or caregivers have received these instruction. The patient/and or caregivers are aware that any significant change in condition or worsening of symptoms should prompt an immediate return to this or the closest emergency department or call 911. Prescriptions: Amox Tr/Potass Clav. 875 mg [Augmentin 875-125 Tablet] 1 each PO BID 7 Days #14 tablet Ketorolac Trometh 10 mg Tab [TORAdol 10 MG TABLET] 10 mg PO TID 5 Days #15 tablet
[2024-06-25 18:07] VITALS: PULSE 76; RESP 18
[2024-06-25] MEDS ORDERED: TORAdol 30 mg Injection ONE (19:09)
[2024-06-25] MEDS: TORAdol 30 mg Injection IM ONE (19:10)
[2024-06-25 19:57] VITALS: BP 126/87
--- NOTE | 2024-06-26 08:37 | XRAY ---
Indication: Pain following fall. Multiple contiguous axial images obtained through the head without contrast. Comparison: November 17, 2016 Normal appearing brain parenchyma, ventricles, and bony calvarium. Worsening moderate mucosal thickening both ethmoid, left frontal, and both sphenoid sinuses with tiny fluid leveling. Mastoid air cells are clear. Impression: Worsening pansinusitis. Remaining CT head without contrast exam is normal.
--- NOTE | 2024-06-26 08:40 | XRAY ---
Indication: Pain following fall. Multiple contiguous axial images obtained through the cervical spine. Sagittal and coronal reformatted images obtained. Comparison: August 30, 2013 Axial images again negative for acute fracture, suspicious bony lesions, or spinal canal stenosis. New mild C5-C6 broad-based disc bulge. Facets are symmetric. Sagittal and coronal reformatted images again demonstrates lordotic straightening, positional versus paraspinal spasm. New C5-C6 disc space narrowing. No acute compression fracture, subluxation, or jumped facet. Normal appearing craniocervical junction. Visualized noncontrasted soft tissues unremarkable. Visualized lung apices demonstrates new subpleural cystic changes. Impression: 1. Continued negative acute fracture/subluxation. 2. Again cervical lordotic straightening, positional versus paraspinal spasm. 3. New C5-C6 degenerative disc disease and biapical subpleural cystic changes.
== END 2024-06-25 19:51 | disposition home or self-care (01) ==
LOC: ED 17:07
DX: Z04.3 Encounter for examination and observation following other accident (principal); S16.1XXA Strain of muscle, fascia and tendon at neck level, initial encounter; W01.190A Fall on same level from slipping, tripping and stumbling with subsequent striking against furniture, initial encounter; Y92.122 Bedroom in nursing home as the place of occurrence of the external cause; M50.322 Other cervical disc degeneration at C5-C6 level; J32.4 Chronic pansinusitis; R51.9 Headache, unspecified; E11.9 Type 2 diabetes mellitus without complications; Z79.4 Long term (current) use of insulin; Z79.84 Long term (current) use of oral hypoglycemic drugs; Z79.899 Other long term (current) drug therapy; Z72.0 Tobacco use
CPT/HCPCS: 70450; 72125; 96372; 99283; J1885

== ENCOUNTER 2024-07-21 16:42 | Emergency (ER) | payer OTHER ==
--- NOTE | 2024-07-21 16:58 | ERPHSYRPT ---
- History of Present Illness Time Seen by Provider: 07/21/24 16:50 Source: patient Exam Limitations: no limitations Physician History: Patient ate 3 donuts and a bagel this morning at [facility]. Glucose was elevated so he was given 15u of insulin. After the insulin his glucose dropped into the 40s. He was given snacks which increased to 60, but dropped again to 40s. He was started on D10 on his way to ER. Patient denies LONG, nausea, vomiting, confusion, abd pain or dizziness. Timing/Duration: today Severity: mild Modifying Factors: Improves With: other Associated Symptoms: denies symptoms Allergies/Adverse Reactions: No Known Drug Allergies Allergy (Verified 07/21/24 16:54) Home Medications: Famotidine 20 mg [Pepcid 20 MG] 20 mg PO BID 06/25/24 [History] Gabapentin 600 mg PO TID 06/25/24 [History] Insulin Glargine [Lantus Insulin] 15 unit SQ DAILY 06/25/24 [History] Insulin Lispro [Humalog] 7 unit SQ AC 06/25/24 [History] Melatonin 10 mg PO HS 06/25/24 [History] Metformin HCl 500 mg [Glucophage 500 MG] 500 mg PO BID 06/25/24 [History] Metoclopramide HCl 5 mg PO BID 06/25/24 [History] Mirtazapine 30 mg [Remeron 30 mg] 30 mg PO HS 06/25/24 [History] Pantoprazole 20 mg [Protonix 20MG Tablet] 40 mg PO BID 06/25/24 [History] Prazosin HCl 5 mg PO HS 06/25/24 [History] Sucralfate 1 gm [Carafate 1 GM] 1 g PO QID 06/25/24 [History] hydrOXYzine pamoate [Hydroxyzine Pamoate] 50 mg PO BID 06/25/24 [History] Hx Tetanus, Diphtheria Vaccination/Date Given: Yes Hx Influenza Vaccination/Date Given: Yes Hx Pneumococcal Vaccination/Date Given: No Travel Risk - Emerging Infectious Disease Are you exhibiting symptoms associated with any current EIDs: No - Review of Systems All Other Systems: Reviewed and Negative - Past Medical History Pertinent Past Medical History: Yes Endocrine Medical History: Diabetes Type II Psycho-Social History: Anxiety, Bipolar, Depression Other Medical History: unspecified intellectual disabilities - Past Surgical History Past Surgical History: Yes Significant Family History: diabetes, hypertension - Social History Smoking Status: Current every day smoker How long have you smoked: 20 Exposure to second hand smoke: Yes Alcohol Use: None Drug Use: none Patient Lives Alone: No - Social Determinants of Health Will the patient participate in the screening: Declined to provide - Nursing Vital Signs Nursing Vital Signs: Initial Vital Signs Temperature 97.6 F 07/21/24 16:54 Pulse Rate 72 07/21/24 16:54 Respiratory Rate 20 07/21/24 16:54 Blood Pressure 125/63 07/21/24 16:54 O2 Sat by Pulse Oximetry 96 07/21/24 16:54 Pain Scale Pain Intensity 0 - Physical Exam General Appearance: no apparent distress Eye Exam: PERRL/EOMI, eyes nml inspection Ears, Nose, Throat Exam: normal ENT inspection Neck Exam: normal inspection, supple, full range of motion Respiratory Exam: airway intact, No respiratory distress Neurologic Exam: alert, oriented x 3, cooperative Skin Exam: normal color, warm, dry SpO2 Interpretation: normal O2 Delivery: Room Air - Course Nursing assessment & vital signs reviewed: Yes Ordered Tests: Active Orders 24 hr Category Date Time Status POCT Glucose Check STAT Care 07/21/24 17:04 Active POCT GLUCOSE Stat Lab 07/21/24 17:16 Completed POCT GLUCOSE Stat Lab 07/21/24 17:16 Received Lab/Rad Data: Laboratory Results 07/21/24 Range/Units 17:16 POC Glucometer 119 H (74 to 106) mg/dL - Progress Progress: improved Progress Note: 07/21/24 16:51 POC glucose 156 on ER arrival. D10 stopped. Patient wanting to go home, he agreed to allowing recheck in 20 minutes. If glucose doesn't take a steep drop will dc back to [facility]. 07/21/24 17:27 Repeat 119 after 30 minutes, doing well will dc home at this time. Counseled pt/family regarding: lab results, diagnosis Medical Desision Making - Diagnostic Testing Diagnostic test were ordered, analyzed, and reviewed by me: No - Risk of complications Low Risk: Low risk of morbidity from additional dx testing or treatment - Departure Departure Disposition: Home Clinical Impression: Hypoglycemia Condition: Good Critical Care Time: No Referrals: MARILU JEAN [Primary Care Provider] - Follow up/PCP as directed Instructions: Low Blood Sugar, Adult (DC)
[2024-07-21 17:03] VITALS: BP 125/63; PULSE 72; RESP 20; TEMP 97.6; O2SAT 96
== END 2024-07-21 17:35 | disposition home or self-care (01) ==
LOC: ED 16:42
DX: E11.649 Type 2 diabetes mellitus with hypoglycemia without coma (principal)
CPT/HCPCS: 82947; 99282

== ENCOUNTER 2024-09-27 23:24 | Observation (INO) | payer MEDICAID ==
--- NOTE | 2024-09-27 23:32 | ERPHSYRPT ---
- History of Present Illness Time Seen by Provider: 09/27/24 23:27 Historian: patient, EMS Exam Limitations: no limitations Physician History: Pt had onset of vomiting early this am on ozempic for DM, and now also has abd pain. No hx of trauma. Tender general abd without peritoneal signs or masses. no abd surgies. Chest clear No CP or SObreath. Ht reg without M. Normal Neuro exam and mental status. Discussed with pt and available family risks and benefits of testing/Tx including CBC, CMP, EKG, Trop, UA, Amylase, Lipase, CT abd , venous blood gas, swabs for Covid, RSV, Flu and Strep, pain med, and they wish to proceed so these are ordered. Results discussed with pt and available family. EMS was present in ER to serve as independent source to confirm/collaborate the History. Timing/Duration: today Activities at Onset: none Quality: sharpness Abdominal Pain Onset Location: generalized abdomen Pain Radiation: no radiation Severity of Pain-Max: moderate Severity of Pain-Current: moderate Modifying Factors: Improves With: nothing Associated Symptoms: nausea, vomiting Previous symptoms: same symptoms as today, recently seen, recently treated, other (symptoms before on ozempic. ) Allergies/Adverse Reactions: No Known Drug Allergies Allergy (Verified 07/21/24 16:54) Home Medications: Famotidine 20 mg [Pepcid 20 MG] 20 mg PO BID 06/25/24 [History] Gabapentin 600 mg PO TID 06/25/24 [History] Insulin Glargine [Lantus Insulin] 15 unit SQ HS 06/25/24 [History] Insulin Lispro [Humalog] 7 unit SQ AC 06/25/24 [History] Melatonin 10 mg PO HS 06/25/24 [History] Pantoprazole 20 mg [Protonix 20MG Tablet] 40 mg PO BID 06/25/24 [History] Prazosin HCl 10 mg PO HS 06/25/24 [History] Sucralfate 1 gm [Carafate 1 GM] 1 g PO QID 06/25/24 [History] hydrOXYzine pamoate [Hydroxyzine Pamoate] 50 mg PO BID 06/25/24 [History] Acetaminophen [Acetaminophen ER] 650 mg PO Q6H PRN PRN 09/28/24 [History] Ammonium Lactate 1 ml MC BID PRN 09/28/24 [History] Bisacodyl 10 mg [Dulcolax 10 MG SUPP] 10 mg RC DAILY PRN PRN 09/28/24 [History] Insulin Lispro [Humalog Kwikpen] 7 unit SQ AC 09/28/24 [History] Magnesium Hydroxide 30 ml [Milk of Magnesia 30 ml] 30 ml PO DAILY PRN PRN 09/28/24 [History] Pramipexole Di-HCl [Pramipexole Dihydrochloride] 1 mg PO HS 09/28/24 [History] Semaglutide [Ozempic] 0.25 mg SQ WEEKLY 09/28/24 [History] Sertraline HCl [Zoloft] 100 mg PO DAILY 09/28/24 [History] Trazodone HCl 50 mg [Desyrel 50 mg] 50 mg PO HS 09/28/24 [History] ondansetron HCL [Ondansetron HCl] 4 mg PO Q6H PRN PRN 09/28/24 [History] Hx Tetanus, Diphtheria Vaccination/Date Given: Yes Hx Influenza Vaccination/Date Given: Yes Hx Pneumococcal Vaccination/Date Given: No Travel Risk - Emerging Infectious Disease Are you exhibiting symptoms associated with any current EIDs: No - Review of Systems Constitutional: No Fever, No Chills Eyes: No Symptoms Ears, Nose, & Throat: No Symptoms Respiratory: No Cough, No Dyspnea Cardiac: No Chest Pain, No Edema, No Syncope Abdominal/Gastrointestinal: Abdominal Pain, Nausea, Vomiting, No Diarrhea Genitourinary Symptoms: No Dysuria Musculoskeletal: No Back Pain, No Neck Pain Skin: No Rash Neurological: No Dizziness, No Focal Weakness, No Sensory Changes Psychological: No Symptoms Endocrine: No Symptoms Hematologic/Lymphatic: No Symptoms Immunological/Allergic: No Symptoms All Other Systems: Reviewed and Negative - Past Medical History Pertinent Past Medical History: Yes Endocrine Medical History: Diabetes Type II Psycho-Social History: Anxiety, Bipolar, Depression Other Medical History: unspecified intellectual disabilities - Past Surgical History Past Surgical History: Yes Significant Family History: diabetes, hypertension - Social History Smoking Status: Current every day smoker How long have you smoked: 20 Exposure to second hand smoke: Yes Alcohol Use: None Drug Use: none Patient Lives Alone: No - Social Determinants of Health Will the patient participate in the screening: Declined to provide - Nursing Vital Signs Nursing Vital Signs: Initial Vital Signs Temperature 97.3 F 09/28/24 00:06 Pulse Rate 91 H 09/28/24 00:06 Respiratory Rate 18 09/28/24 00:06 Blood Pressure 137/83 09/28/24 00:06 O2 Sat by Pulse Oximetry 96 09/28/24 00:06 Pain Scale Pain Intensity 5 - Physical Exam General Appearance: no apparent distress, alert Eye Exam: PERRL/EOMI, eyes nml inspection Ears, Nose, Throat Exam: normal ENT inspection, pharynx normal, moist mucous membranes Neck Exam: normal inspection, non-tender, supple, full range of motion Respiratory Exam: normal breath sounds, lungs clear, No respiratory distress Cardiovascular Exam: regular rate/rhythm, normal heart sounds Gastrointestinal/Abdomen Exam: soft, tenderness, guarding, No distention, No mass, No pulsatile mass, No rebound Rectal Exam: deferred Back Exam: normal inspection, normal range of motion, No CVA tenderness, No vertebral tenderness Extremity Exam: normal inspection, normal range of motion, pelvis stable Neurologic Exam: alert, oriented x 3, cooperative, normal mood/affect, nml cerebellar function, sensation nml, No motor deficits Skin Exam: normal color, warm, dry SpO2 Interpretation: normal SpO2: 96 O2 Delivery: Room Air - Course Nursing assessment & vital signs reviewed: Yes EKG Interpreted by Me: Sinus Rhythm, NORMAL AXIS, NORMAL INTERVALS, NORMAL ST-T, Other (Inferior Q waves) - CT Exams Abdomen/Pelvis CT Interpretation: Tele-radiologist Report, Normal Appendix, No appendicitis Ordered Tests: Active Orders 24 hr Category Date Time Status EKG-ER Only STAT Care 09/27/24 23:33 Active IV Insertion STAT Care 09/27/24 23:33 Active ABDOMEN AND PELVIS W/0 CONTRAS [CT] Stat Exams 09/27/24 23:33 Completed AMYLASE Stat Lab 09/27/24 23:45 Completed CBC W DIFF Stat Lab 09/27/24 23:45 Completed CMP Stat Lab 09/27/24 23:45 Completed LIPASE Stat Lab 09/27/24 23:45 Completed Lactic Acid Stat Lab 09/27/24 23:50 Completed Lactic Acid Stat Lab 09/28/24 01:55 Received POCT GLUCOSE Stat Lab 09/28/24 00:56 Completed POCT GLUCOSE Stat Lab 09/28/24 02:42 Received POCT GLUCOSE Stat Lab 09/28/24 02:47 Completed TROPONIN Q4H Lab 09/27/24 23:45 Completed TROPONIN Q4H Lab 09/28/24 03:45 Ordered TROPONIN Q4H Lab 09/28/24 07:45 Ordered UA W/RFX UR CULTURE Stat Lab 09/28/24 00:59 Completed VENOUS BLOOD GAS Stat Lab 09/27/24 23:50 Completed Medication Summary Generic Name Dose Route Start Last Admin Trade Name Freq PRN Reason Stop Dose Admin Sodium Chloride 1,000 mls @ 999 mls/hr 09/28/24 03:14 Sodium Chloride 0.9% 1000 Ml IV 09/28/24 04:14 .Q1H1M STA Discontinued Medications Generic Name Dose Route Start Last Admin Trade Name Freq PRN Reason Stop Dose Admin Famotidine 20 mg 09/27/24 23:33 09/28/24 00:04 Famotidine 20 Mg/1 Vial IV 09/27/24 23:34 20 mg STAT ONE Administration Famotidine Confirm 09/27/24 23:50 Famotidine 20 Mg/1 Vial Administered 09/27/24 23:51 Dose 20 mg IV .STK-MED ONE Hydromorphone HCl 1 mg 09/27/24 23:33 09/28/24 00:04 Hydromorphone 1 Mg/1ml Inj IV 09/27/24 23:34 1 mg STAT ONE Administration Hydromorphone HCl Confirm 09/27/24 23:50 Hydromorphone 1 Mg/1ml Inj Administered 09/27/24 23:51 Dose 1 mg .ROUTE .STK-MED ONE Hydromorphone HCl 1 mg 09/28/24 03:14 Hydromorphone 1 Mg/1ml Inj IV 09/28/24 03:15 STAT ONE Sodium Chloride 1,000 mls @ 999 mls/hr 09/28/24 00:23 09/28/24 00:49 Sodium Chloride 0.9% 1000 Ml IV 09/28/24 01:23 999 mls/hr .Q1H1M STA Administration Sodium Chloride Confirm 09/28/24 00:46 Sodium Chloride 0.9% 1000 Ml Administered 09/28/24 00:47 Dose 1,000 mls @ ud .ROUTE .[facility] ONE Insulin Human Regular 10 unit 09/28/24 00:24 09/28/24 01:26 Insulin Regular, Human 1 Unit IV 09/28/24 00:25 Not Given STAT ONE Insulin Human Regular 5 unit 09/28/24 01:01 09/28/24 01:05 Insulin Regular, Human 1 Unit IV 09/28/24 01:02 5 unit STAT ONE Administration Insulin Human Regular Confirm 09/28/24 01:04 Insulin Regular, Human 1 Unit Administered 09/28/24 01:05 Dose 5 unit .ROUTE .STK-MED ONE Insulin Human Regular 5 unit 09/28/24 03:26 Insulin Regular, Human 1 Unit IV 09/28/24 03:27 STAT ONE Ondansetron HCl 4 mg 09/27/24 23:33 09/28/24 00:04 Ondansetron Hcl 4 Mg/2 Ml Vial IV 09/27/24 23:34 4 mg STAT ONE Administration Ondansetron HCl Confirm 09/27/24 23:50 Ondansetron Hcl 4 Mg/2 Ml Vial Administered 09/27/24 23:51 Dose 4 mg .ROUTE .[facility] ONE Lab/Rad Data: Laboratory Result Diagrams 09/27/24 23:45 09/27/24 23:45 Laboratory Results 09/28/24 09/28/24 09/28/24 Range/Units 02:47 00:59 00:56 WBC (4.23-9.07) x10^3/uL RBC (4.63-6.08) x10^6/uL Hgb (13.7-17.5) g/dL Hct (40.1-51.0) % MCV (79.0-92.2) fL MCH (25.7-32.2) pg MCHC (32.3-36.5) g/dL RDW (11.6-14.4) % Plt Count (163-337) x10^3/uL MPV (9.4-12.4) fL Gran % (34.0-67.9) % Immature Gran % (Auto) (0.001-0.429) % Nucleat RBC Rel Count (0.00-0.2) % Eos # (Auto) (0.04-0.54) x10^3/uL Immature Gran # (Auto) (0.001-0.031) x10^3u/L Absolute Lymphs (auto) (1.32-3.57) x10^3/uL Absolute Monos (auto) (0.30-0.82) x10^3/uL Absolute Nucleated RBC (0.00-0.012) x10^3u/L Lymphocytes % (21.8-53.1) % Monocytes % (5.3-12.2) % Eosinophils % (0.8-7.0) % Basophils % (0.2-1.2) % Absolute Granulocytes (1.78-5.38) x10^3/uL Basophils # (0.01-0.08) x10^3/uL pO2/FiO2 Ratio % VBG pH (7.32-7.42) VBG pCO2 at Pat Temp (42-55) mm/Hg VBG pO2 at Pat Temp (25-40) mm/Hg VBG HCO3 (22-28) meq/L VBG O2 Sat (Jumana) (95-100) VBG Base Excess (-2.0-2.0) VBG Hemoglobin VBG Carboxyhemoglobin (0.0-6.9) % T HGB POC Potassium (3.5-5.1) Sodium (135-145) mmol/L Potassium (3.5-5.1) mmol/L Chloride (98-107) mmol/L Carbon Dioxide (22-30) mmol/L Anion Gap (5-15) MEQ/L BUN (9-20) mg/dL Creatinine (0.66-1.25) mg/dL Estimated GFR ML/MIN Glucose (74-106) mg/dL POC Glucometer 280 H 357 H (74 to 106) mg/dL Lactic Acid (0.4-2.0) Calcium (8.4-10.2) mg/dL Total Bilirubin (0.2-1.3) mg/dL AST (17-59) U/L ALT (0-50) U/L Alkaline Phosphatase (38-126) U/L Troponin I (0.000-0.033) ng/mL Serum Total Protein (6.3-8.2) g/dL Albumin (3.5-5.0) g/dL Amylase (30-110) U/L Lipase (23-300) U/L Urine Color Yellow (Yellow) Urine Appearance Clear (Clear) Urine pH 5.5 (4.6-8.0) Ur Specific Frontier >=1.030 A (1.005-1.030) Urine Protein Trace A (Negative) Urine Glucose (UA) >=1000 A (Negative) mg/dL Urine Ketones >=160 A (Negative) Urine Blood Negative (Negative) Urine Nitrite Negative (Negative) Urine Bilirubin Negative (Negative) Urine Urobilinogen 0.2 (0.2) mg/dL Ur Leukocyte Esterase Negative (Negative) U Hyaline Cast (Auto) 3-5 A (0-2) /LPF Urine Microscopic RBC 0-2 (0-5) /HPF Urine Microscopic WBC 0-2 (0-5) /HPF Ur Epithelial Cells None Seen (None Seen) /HPF Urine Bacteria None Seen (None Seen) /HPF Urine Culture Reflexed NO (NO) Influenza Type A Ag (NEGATIVE) Influenza Type B Ag (NEGATIVE) RSV (PCR) (NEGATIVE) SARS-CoV-2 (PCR) (NEGATIVE) Group A Strep Antibody (NEGATIVE) 09/27/24 09/27/24 09/27/24 Range/Units 23:50 23:50 23:50 WBC (4.23-9.07) x10^3/uL RBC (4.63-6.08) x10^6/uL Hgb (13.7-17.5) g/dL Hct (40.1-51.0) % MCV (79.0-92.2) fL MCH (25.7-32.2) pg MCHC (32.3-36.5) g/dL RDW (11.6-14.4) % Plt Count (163-337) x10^3/uL MPV (9.4-12.4) fL Gran % (34.0-67.9) % Immature Gran % (Auto) (0.001-0.429) % Nucleat RBC Rel Count (0.00-0.2) % Eos # (Auto) (0.04-0.54) x10^3/uL Immature Gran # (Auto) (0.001-0.031) x10^3u/L Absolute Lymphs (auto) (1.32-3.57) x10^3/uL Absolute Monos (auto) (0.30-0.82) x10^3/uL Absolute Nucleated RBC (0.00-0.012) x10^3u/L Lymphocytes % (21.8-53.1) % Monocytes % (5.3-12.2) % Eosinophils % (0.8-7.0) % Basophils % (0.2-1.2) % Absolute Granulocytes (1.78-5.38) x10^3/uL Basophils # (0.01-0.08) x10^3/uL pO2/FiO2 Ratio 21.0 % VBG pH 7.39 (7.32-7.42) VBG pCO2 at Pat Temp 27 L (42-55) mm/Hg VBG pO2 at Pat Temp 55 H (25-40) mm/Hg VBG HCO3 16.3 L* (22-28) meq/L VBG O2 Sat (Jumana) 87.8 L (95-100) VBG Base Excess -6.8 L (-2.0-2.0) VBG Hemoglobin 16.7 VBG Carboxyhemoglobin 3.2 (0.0-6.9) % T HGB POC Potassium 4.4 (3.5-5.1) Sodium (135-145) mmol/L Potassium (3.5-5.1) mmol/L Chloride (98-107) mmol/L Carbon Dioxide (22-30) mmol/L Anion Gap (5-15) MEQ/L BUN (9-20) mg/dL Creatinine (0.66-1.25) mg/dL Estimated GFR ML/MIN Glucose (74-106) mg/dL POC Glucometer (74 to 106) mg/dL Lactic Acid (0.4-2.0) Calcium (8.4-10.2) mg/dL Total Bilirubin (0.2-1.3) mg/dL AST (17-59) U/L ALT (0-50) U/L Alkaline Phosphatase (38-126) U/L Troponin I (0.000-0.033) ng/mL Serum Total Protein (6.3-8.2) g/dL Albumin (3.5-5.0) g/dL Amylase (30-110) U/L Lipase (23-300) U/L Urine Color (Yellow) Urine Appearance (Clear) Urine pH (4.6-8.0) Ur Specific Frontier (1.005-1.030) Urine Protein (Negative) Urine Glucose (UA) (Negative) mg/dL Urine Ketones (Negative) Urine Blood (Negative) Urine Nitrite (Negative) Urine Bilirubin (Negative) Urine Urobilinogen (0.2) mg/dL Ur Leukocyte Esterase (Negative) U Hyaline Cast (Auto) (0-2) /LPF Urine Microscopic RBC (0-5) /HPF Urine Microscopic WBC (0-5) /HPF Ur Epithelial Cells (None Seen) /HPF Urine Bacteria (None Seen) /HPF Urine Culture Reflexed (NO) Influenza Type A Ag NEGATIVE (NEGATIVE) Influenza Type B Ag NEGATIVE (NEGATIVE) RSV (PCR) NEGATIVE (NEGATIVE) SARS-CoV-2 (PCR) NEGATIVE (NEGATIVE) Group A Strep Antibody NOT DETECTED (NEGATIVE) 09/27/24 09/27/24 09/27/24 Range/Units 23:50 23:45 23:45 WBC (4.23-9.07) x10^3/uL RBC (4.63-6.08) x10^6/uL Hgb (13.7-17.5) g/dL Hct (40.1-51.0) % MCV (79.0-92.2) fL MCH (25.7-32.2) pg MCHC (32.3-36.5) g/dL RDW (11.6-14.4) % Plt Count (163-337) x10^3/uL MPV (9.4-12.4) fL Gran % (34.0-67.9) % Immature Gran % (Auto) (0.001-0.429) % Nucleat RBC Rel Count (0.00-0.2) % Eos # (Auto) (0.04-0.54) x10^3/uL Immature Gran # (Auto) (0.001-0.031) x10^3u/L Absolute Lymphs (auto) (1.32-3.57) x10^3/uL Absolute Monos (auto) (0.30-0.82) x10^3/uL Absolute Nucleated RBC (0.00-0.012) x10^3u/L Lymphocytes % (21.8-53.1) % Monocytes % (5.3-12.2) % Eosinophils % (0.8-7.0) % Basophils % (0.2-1.2) % Absolute Granulocytes (1.78-5.38) x10^3/uL Basophils # (0.01-0.08) x10^3/uL pO2/FiO2 Ratio % VBG pH (7.32-7.42) VBG pCO2 at Pat Temp (42-55) mm/Hg VBG pO2 at Pat Temp (25-40) mm/Hg VBG HCO3 (22-28) meq/L VBG O2 Sat (Jumana) (95-100) VBG Base Excess (-2.0-2.0) VBG Hemoglobin VBG Carboxyhemoglobin (0.0-6.9) % T HGB POC Potassium (3.5-5.1) Sodium 139 (135-145) mmol/L Potassium 4.3 (3.5-5.1) mmol/L Chloride 98 (98-107) mmol/L Carbon Dioxide 13 L* (22-30) mmol/L Anion Gap 31.1 H (5-15) MEQ/L BUN 24 H (9-20) mg/dL Creatinine 0.98 (0.66-1.25) mg/dL Estimated GFR 94.5 ML/MIN Glucose 382 H (74-106) mg/dL POC Glucometer (74 to 106) mg/dL Lactic Acid 2.4 H (0.4-2.0) Calcium 10.2 (8.4-10.2) mg/dL Total Bilirubin 1.00 (0.2-1.3) mg/dL AST 28 (17-59) U/L ALT 30 (0-50) U/L Alkaline Phosphatase 100 (38-126) U/L Troponin I < 0.012 (0.000-0.033) ng/mL Serum Total Protein 8.7 H (6.3-8.2) g/dL Albumin 5.1 H (3.5-5.0) g/dL Amylase 64 (30-110) U/L Lipase 28 (23-300) U/L Urine Color (Yellow) Urine Appearance (Clear) Urine pH (4.6-8.0) Ur Specific Frontier (1.005-1.030) Urine Protein (Negative) Urine Glucose (UA) (Negative) mg/dL Urine Ketones (Negative) Urine Blood (Negative) Urine Nitrite (Negative) Urine Bilirubin (Negative) Urine Urobilinogen (0.2) mg/dL Ur Leukocyte Esterase (Negative) U Hyaline Cast (Auto) (0-2) /LPF Urine Microscopic RBC (0-5) /HPF Urine Microscopic WBC (0-5) /HPF Ur Epithelial Cells (None Seen) /HPF Urine Bacteria (None Seen) /HPF Urine Culture Reflexed (NO) Influenza Type A Ag (NEGATIVE) Influenza Type B Ag (NEGATIVE) RSV (PCR) (NEGATIVE) SARS-CoV-2 (PCR) (NEGATIVE) Group A Strep Antibody (NEGATIVE) 09/27/24 Range/Units 23:45 WBC 10.8 H (4.23-9.07) x10^3/uL RBC 5.80 (4.63-6.08) x10^6/uL Hgb 16.3 (13.7-17.5) g/dL Hct 47.1 (40.1-51.0) % MCV 81.2 (79.0-92.2) fL MCH 28.1 (25.7-32.2) pg MCHC 34.6 (32.3-36.5) g/dL RDW 12.8 (11.6-14.4) % Plt Count 322 (163-337) x10^3/uL MPV 9.8 (9.4-12.4) fL Gran % 73.4 H (34.0-67.9) % Immature Gran % (Auto) 0.4 (0.001-0.429) % Nucleat RBC Rel Count 0.0 (0.00-0.2) % Eos # (Auto) 0.09 (0.04-0.54) x10^3/uL Immature Gran # (Auto) 0.04 H (0.001-0.031) x10^3u/L Absolute Lymphs (auto) 2.01 (1.32-3.57) x10^3/uL Absolute Monos (auto) 0.63 (0.30-0.82) x10^3/uL Absolute Nucleated RBC 0.00 (0.00-0.012) x10^3u/L Lymphocytes % 18.6 L (21.8-53.1) % Monocytes % 5.8 (5.3-12.2) % Eosinophils % 0.8 (0.8-7.0) % Basophils % 1.0 (0.2-1.2) % Absolute Granulocytes 7.94 H (1.78-5.38) x10^3/uL Basophils # 0.11 H (0.01-0.08) x10^3/uL pO2/FiO2 Ratio % VBG pH (7.32-7.42) VBG pCO2 at Pat Temp (42-55) mm/Hg VBG pO2 at Pat Temp (25-40) mm/Hg VBG HCO3 (22-28) meq/L VBG O2 Sat (Jumana) (95-100) VBG Base Excess (-2.0-2.0) VBG Hemoglobin VBG Carboxyhemoglobin (0.0-6.9) % T HGB POC Potassium (3.5-5.1) Sodium (135-145) mmol/L Potassium (3.5-5.1) mmol/L Chloride (98-107) mmol/L Carbon Dioxide (22-30) mmol/L Anion Gap (5-15) MEQ/L BUN (9-20) mg/dL Creatinine (0.66-1.25) mg/dL Estimated GFR ML/MIN Glucose (74-106) mg/dL POC Glucometer (74 to 106) mg/dL Lactic Acid (0.4-2.0) Calcium (8.4-10.2) mg/dL Total Bilirubin (0.2-1.3) mg/dL AST (17-59) U/L ALT (0-50) U/L Alkaline Phosphatase (38-126) U/L Troponin I (0.000-0.033) ng/mL Serum Total Protein (6.3-8.2) g/dL Albumin (3.5-5.0) g/dL Amylase (30-110) U/L Lipase (23-300) U/L Urine Color (Yellow) Urine Appearance (Clear) Urine pH (4.6-8.0) Ur Specific Frontier (1.005-1.030) Urine Protein (Negative) Urine Glucose (UA) (Negative) mg/dL Urine Ketones (Negative) Urine Blood (Negative) Urine Nitrite (Negative) Urine Bilirubin (Negative) Urine Urobilinogen (0.2) mg/dL Ur Leukocyte Esterase (Negative) U Hyaline Cast (Auto) (0-2) /LPF Urine Microscopic RBC (0-5) /HPF Urine Microscopic WBC (0-5) /HPF Ur Epithelial Cells (None Seen) /HPF Urine Bacteria (None Seen) /HPF Urine Culture Reflexed (NO) Influenza Type A Ag (NEGATIVE) Influenza Type B Ag (NEGATIVE) RSV (PCR) (NEGATIVE) SARS-CoV-2 (PCR) (NEGATIVE) Group A Strep Antibody (NEGATIVE) - Progress Progress: improved Progress Note: 09/28/24 03:15 discussed findings with pt and he would agree to obs in hospital if consultation with hospitalist supports this with his diabetes condition tonight. Consult placed to consider obs or admission in hospital 09/28/24 03:[address] Flynn the hospitalist and will place on obs with insulin drip and IVF. Discussed with DrKike: Other (Dr. Flynn) Will see patient in: hospital (observation) Counseled pt/family regarding: lab results, diagnosis, need for follow-up, rad results Medical Desision Making - Independent Historian Additional History obtained from: EMS - Discussion of managment Reviewed:: Test results, Need for additional workup Agreed on:: Treatment plan, need for follow-up - Diagnostic Testing Diagnostic test were ordered, analyzed, and reviewed by me: Yes Radiological Interpretation: Interpreted by me, Reviewed by me, Teleradiologist Report - Risk of complications The pt has a mod risk of morbidity or mortality based on: Need for prescription drug management The pt has a high risk of morbidity or mortality based on: Decision regarding hospitilization or escalation of hosp level of care - Departure Departure Disposition: Observation Clinical Impression: early DKA, Reaction to Ozempic Condition: Good Critical Care Time: No Referrals: ENVIVE,ENVIVE [Primary Care Provider] - Follow up/PCP as directed
[2024-09-27] MEDS ORDERED: Zofran 4 MG/2 ML VIAL ONE (23:50)
[2024-09-27] MEDS ORDERED: Pepcid 20 MG VIAL IV ONE (23:50)
[2024-09-27] MEDS ORDERED: Hydromorphone 1 mg/ml Injection ONE (23:50)
[2024-09-27 23:55] LABS: Absolute Neutrophil Ct (ANC) 7.94 x10^3/uL (1.78-5.38); Basophil (Absolute #) 0.11 x10^3/uL (0.01-0.08); Eosinophil % 0.8 % (0.8-7.0); Eosinophil (Absolute #) 0.09 x10^3/uL (0.04-0.54); Hematocrit 47.1 % (40.1-51.0); Hemoglobin 16.3 g/dL (13.7-17.5); IMMATURE GRAN # 0.04 x10^3u/L (0.001-0.031); IMMATURE GRAN % 0.4 % (0.001-0.429); Lymphocyte (Absolute #) 2.01 x10^3/uL (1.32-3.57); Lymphocytes % 18.6 % (21.8-53.1); Mean Cell Volume 81.2 fL (79.0-92.2); Mean Corpuscular Hemoglobin 28.1 pg (25.7-32.2); Mean Corpuscular Hgb Concent. 34.6 g/dL (32.3-36.5); Mean Platelet Volume 9.8 fL (9.4-12.4); Monocyte (Absolute #) 0.63 x10^3/uL (0.30-0.82); Monocytes % 5.8 % (5.3-12.2); Neutrophil % 73.4 % (34.0-67.9); Platelet Count 322 x10^3/uL (163-337); Red Cell Distribution Width 12.8 % (11.6-14.4); White Blood Count 10.8 x10^3/uL (4.23-9.07)
[2024-09-27 23:56] LABS: VBG BASE EXCESS -6.8 (-2.0-2.0); VBG CARBOXYHEMOGLOBIN 3.2 % T HGB (0.0-6.9); VBG HCO3- 16.3 meq/L (22-28); VBG HEMOGLOBIN 16.7; VBG O2 SATURATION 87.8 (95-100); VBG POTASSIUM 4.4 (3.5-5.1); VBG pH 7.39 (7.32-7.42)
[2024-09-28] MEDS: Pepcid 20 MG VIAL IV ONE (00:04)
[2024-09-28] MEDS: Zofran 4 MG/2 ML VIAL IV ONE ×2 (00:04→03:52)
[2024-09-28] MEDS: Hydromorphone 1 mg/ml Injection IV ONE ×2 (00:04→03:52)
[2024-09-28 00:10] LABS: ALBUMIN 5.1 g/dL (3.5-5.0); ANION GAP 31.1 MEQ/L (5-15); Calcium 10.2 mg/dL (8.4-10.2); Creatinine 1 0.98 mg/dL (0.66-1.25); EST GLOMERULAR FILTRATION RATE 94.5 ML/MIN; Potassium 4.3 mmol/L (3.5-5.1); Total Protein 8.7 g/dL (6.3-8.2)
[2024-09-28 00:34] LABS: INFLUENZA A NEGATIVE (NEGATIVE); INFLUENZA B NEGATIVE (NEGATIVE); RESPIRATORY SYNCTIAL VIRUS NEGATIVE (NEGATIVE); SARS-CoV-2 Xpert Express NEGATIVE (NEGATIVE)
[2024-09-28] MEDS ORDERED: Sodium Chloride 0.9% 1000 ML 1,000 ML ONE ×2 (00:46→04:07)
[2024-09-28] MEDS: Sodium Chloride 0.9% 1000 ML 1,000 ML IV STA ×2 (00:49→04:11)
[2024-09-28] MEDS ORDERED: HUMULIN R ONE (01:04)
[2024-09-28] MEDS: HUMULIN R IV ONE ×3 (01:05→03:44)
[2024-09-28 01:25] LABS: Appearance Clear (Clear); Bacteria None Seen /HPF (None Seen); Bilirubin Negative (Negative); Blood Negative (Negative); Epithelial Cells None Seen /HPF (None Seen); Glucose, Urine >=1000 mg/dL (Negative); Ketones >=160 (Negative); Leukocyte Esterase Negative (Negative); Nitrite Negative (Negative); Ph 5.5 (4.6-8.0); Protein,Urine Dip Trace (Negative); RBC 0-2 /HPF (0-5); Specific Gravity >=1.030 (1.005-1.030); Urobilinogen 0.2 mg/dL (0.2); WBC 0-2 /HPF (0-5)
--- NOTE | 2024-09-28 02:45 | XRAY ---
CLINICAL HISTORY: abd pain vomiting COMPARISON: None. TECHNIQUE: Contiguous axial images were obtained from the level of the diaphragm to the pubic symphysis without intravenous or oral contrast. Coronal and sagittal reconstructions were likewise performed and indicated to increase the sensitivity for detecting clinically relevant pathology. CT scan was performed according to ALARA (as low as reasonably achievable). FINDINGS: The visualized lung bases are clear. Evaluation of the abdominal and pelvic visceral organs is limited without intravenous contrast. The unenhanced liver, spleen, pancreas, and adrenal glands are grossly unremarkable. The gallbladder is present. The kidneys are normal in size and attenuation without obvious calcification. There is no hydronephrosis or perinephric stranding. The ureters are normal in caliber. No adenopathy or fluid collections are seen. No evidence of focal or diffuse bowel wall thickening or evidence of bowel obstruction is seen. The appendix is visualized in the right lower quadrant and appears within normal limits. Small hyperdense material of size 10 mm is noted in cecum. The aorta is normal in caliber. The urinary bladder is normal in contour. Pelvic viscera are grossly unremarkable. No aggressive appearing osseous lesions are identified. IMPRESSION: Small hyperdense material of size 10 mm is noted in cecum is mostly a medicine / hyperdense ingested food material and unlikely to be of clinical significance. No new interval abnormality since prior study. Electronically Signed by: Ramos Carrera MD. (09/28/2024 02:40:42 EST)
[2024-09-28] MEDS: MYXREDLIN 100 UNIT/100 ML BAG 100 UNIT/100 ML PLAST..BAG IV PRN (03:33)
[2024-09-28] MEDS ORDERED: Zofran 4 MG/2 ML VIAL ONE (03:50)
[2024-09-28] MEDS ORDERED: Hydromorphone 1 mg/ml Injection ONE (03:50)
--- NOTE | 2024-09-28 05:29 | PCM.HP ---
History of Present Illness - Chief Complaint Chief Complaint: Early DKA, ozempic reaction Date: 09/28/24 History of Present Illness: Mr. ROTH is a 49 year old male with a past medical history significant for hypertension, diabetes and hyperlipidemia who started Ozempic about two weeks ago presented to the hospital with complaints of LLQ abdominal pain associated with nausea and vomiting. Upon arrival, he was found to have an elevated blood sugar with chemistries showing a bicarb of 13. ABG demonstrated a normal pH though. No fever/chills. No chest pain or shortness of breath. No current nausea, vomiting or diarrhea. No dysuria, hematuria or foamy urine. U/A showed a UrSG > 1.030 with 4+ ketones and 3+ glucose. - Review of Systems Constitutional: No Fever, No Chills Eyes: No Vision Changes Ears, Nose, & Throat: No Sinus Drainage Respiratory: No Cough, No Orthopnea, No Short Of Breath Cardiac: No Chest Pain, No Edema, No Palpitations Abdominal/Gastrointestinal: Abdominal Pain, Nausea, Vomiting, No Diarrhea Genitourinary Symptoms: No Dysuria, No Frequency, No Hematuria Musculoskeletal: No Back Pain, No Joint Pain Skin: No Cellulitis, No Rash Neurological: Dizziness, Lethargy Psychological: No Suicidal Ideations Endocrine: No Polyuria, No Polydipsia Medications & Allergies Home Medications: Home Medication List Famotidine 20 mg [Pepcid 20 MG] 20 mg PO BID 06/25/24 [History Confirmed 09/28/24] Gabapentin 600 mg PO TID 06/25/24 [History Confirmed 09/28/24] Insulin Glargine [Lantus Insulin] 15 unit SQ HS 06/25/24 [History Confirmed 09/28/24] Insulin Lispro [Humalog] 7 unit SQ AC 06/25/24 [History Confirmed 09/28/24] Melatonin 10 mg PO HS 06/25/24 [History Confirmed 09/28/24] Pantoprazole 20 mg [Protonix 20MG Tablet] 40 mg PO BID 06/25/24 [History Confirmed 09/28/24] Prazosin HCl 10 mg PO HS 06/25/24 [History Confirmed 09/28/24] Sucralfate 1 gm [Carafate 1 GM] 1 g PO QID 06/25/24 [History Confirmed 09/28/24] hydrOXYzine pamoate [Hydroxyzine Pamoate] 50 mg PO BID 06/25/24 [History Confirmed 09/28/24] Acetaminophen [Acetaminophen ER] 650 mg PO Q6H PRN PRN 09/28/24 [History Confirmed 09/28/24] Ammonium Lactate 1 ml MC BID PRN 09/28/24 [History Confirmed 09/28/24] Bisacodyl 10 mg [Dulcolax 10 MG SUPP] 10 mg RC DAILY PRN PRN 09/28/24 [History Confirmed 09/28/24] Insulin Lispro [Humalog Kwikpen] 7 unit SQ AC 09/28/24 [History Confirmed 09/28/24] Magnesium Hydroxide 30 ml [Milk of Magnesia 30 ml] 30 ml PO DAILY PRN PRN 09/28/24 [History Confirmed 09/28/24] Pramipexole Di-HCl [Pramipexole Dihydrochloride] 1 mg PO HS 09/28/24 [History Confirmed 09/28/24] Semaglutide [Ozempic] 0.25 mg SQ WEEKLY 09/28/24 [History Confirmed 09/28/24] Sertraline HCl [Zoloft] 100 mg PO DAILY 09/28/24 [History Confirmed 09/28/24] Trazodone HCl 50 mg [Desyrel 50 mg] 50 mg PO HS 09/28/24 [History Confirmed 09/28/24] ondansetron HCL [Ondansetron HCl] 4 mg PO Q6H PRN PRN 09/28/24 [History Confirmed 09/28/24] Allergies/Adverse Reactions: Allergies Allergy/AdvReac Type Severity Reaction Status Date / Time No Known Drug Allergies Allergy Verified 07/21/24 16:54 - Past Medical History Past Medical History: Yes Neurological History: No Pertinent History ENT History: No Pertinent History Cardiac History: No Pertinent History Respiratory History: No Pertinent History Endocrine Medical History: Diabetes Type II Musculoskelatal History: No Pertinent History GI Medical History: GERD History: No Pertinent History Pyscho-Social History: Anxiety, Bipolar, Depression Male Reproductive Disorders: No Pertinent History Comment: unspecified intellectual disabilities, RLS - Past Surgical History Past Surgical History: Yes Neuro Surgical History: No Pertinent History Cardiac History: No Pertinent History Respiratory Surgery: No Pertinent History GI Surgical History: No Pertinent History Genitourinary Surgical Hx: No Pertinent History Musculskeletal Surgical Hx: No Pertinent History Male Surgical History: No Pertinent History Significant Family History: diabetes, hypertension - Social History Smoking Status: Current every day smoker How long have you smoked: 31 years Exposure to second hand smoke: Yes Alcohol: None Drug Use: none - Social Determinants of Health Will the patient participate in the screening: Yes Do you worry about a steady place to live?: No Do you have any problems with any of the following?: No known problems In the past 12 months,have you had to go without utilities?: No Have you or anyone in your house had to go without enough: No Transportation Issues: No Has anyone in your support network made you feel unsafe?: No Does the patient want assistance with any of the above?: No Comment: Patient currently living at [facility] for therapy - Physical Exam Vital Signs: Vital Signs - 24 hr Temp Pulse Resp BP BP Pulse Ox 09/28/24 04:21 97.5 F 88 22 133/78 96 09/28/24 03:51 93 H 19 127/85 98 09/28/24 03:31 96 09/28/24 03:30 99/70 96 09/28/24 03:00 84 16 153/73 97 09/28/24 02:30 85 16 139/78 91 L 09/28/24 02:00 84 16 133/82 91 L 09/28/24 01:30 85 16 139/78 92 L 09/28/24 01:00 91 H 16 138/77 92 L 09/28/24 00:49 97 H 18 144/88 97 09/28/24 00:30 99 H 18 134/86 96 09/28/24 00:06 97.3 F 91 H 18 137/83 96 General Appearance: mild distress Neurologic Exam: alert, oriented x 3, cooperative Ears, Nose, Throat Exam: dry mucous membranes Neck Exam: non-tender, supple Respiratory Exam: No respiratory distress Cardiovascular Exam: regular rate/rhythm Gastrointestinal/Abdomen Exam: soft Extremity Exam: No pedal edema, No swelling Skin Exam: normal color, No rash Results - Labs Lab/Micro Results: Lab Results-Last 24 Hours 09/27/24 09/27/2424 Range/Units 23:45 23:45 23:45 WBC 10.8 H (4.23-9.07) x10^3/uL RBC 5.80 (4.63-6.08) x10^6/uL Hgb 16.3 (13.7-17.5) g/dL Hct 47.1 (40.1-51.0) % MCV 81.2 (79.0-92.2) fL MCH 28.1 (25.7-32.2) pg MCHC 34.6 (32.3-36.5) g/dL RDW 12.8 (11.6-14.4) % Plt Count 322 (163-337) x10^3/uL MPV 9.8 (9.4-12.4) fL Gran % 73.4 H (34.0-67.9) % Immature Gran % (Auto) 0.4 (0.001-0.429) % Nucleat RBC Rel Count 0.0 (0.00-0.2) % Eos # (Auto) 0.09 (0.04-0.54) x10^3/uL Immature Gran # (Auto) 0.04 H (0.001-0.031) x10^3u/L Absolute Lymphs (auto) 2.01 (1.32-3.57) x10^3/uL Absolute Monos (auto) 0.63 (0.30-0.82) x10^3/uL Absolute Nucleated RBC 0.00 (0.00-0.012) x10^3u/L Lymphocytes % 18.6 L (21.8-53.1) % Monocytes % 5.8 (5.3-12.2) % Eosinophils % 0.8 (0.8-7.0) % Basophils % 1.0 (0.2-1.2) % Absolute Granulocytes 7.94 H (1.78-5.38) x10^3/uL Basophils # 0.11 H (0.01-0.08) x10^3/uL pO2/FiO2 Ratio % VBG pH (7.32-7.42) VBG pCO2 at Pat Temp (42-55) mm/Hg VBG pO2 at Pat Temp (25-40) mm/Hg VBG HCO3 (22-28) meq/L VBG O2 Sat (Jumana) (95-100) VBG Base Excess (-2.0-2.0) VBG Hemoglobin VBG Carboxyhemoglobin (0.0-6.9) % T HGB POC Potassium (3.5-5.1) Sodium 139 (135-145) mmol/L Potassium 4.3 (3.5-5.1) mmol/L Chloride 98 (98-107) mmol/L Carbon Dioxide 13 L* (22-30) mmol/L Anion Gap 31.1 H (5-15) MEQ/L BUN 24 H (9-20) mg/dL Creatinine 0.98 (0.66-1.25) mg/dL Estimated GFR 94.5 ML/MIN Glucose 382 H (74-106) mg/dL POC Glucometer (74 to 106) mg/dL Lactic Acid (0.4-2.0) Calcium 10.2 (8.4-10.2) mg/dL Total Bilirubin 1.00 (0.2-1.3) mg/dL AST 28 (17-59) U/L ALT 30 (0-50) U/L Alkaline Phosphatase 100 (38-126) U/L Troponin I < 0.012 (0.000-0.033) ng/mL Serum Total Protein 8.7 H (6.3-8.2) g/dL Albumin 5.1 H (3.5-5.0) g/dL Amylase 64 (30-110) U/L Lipase 28 (23-300) U/L Urine Color (Yellow) Urine Appearance (Clear) Urine pH (4.6-8.0) Ur Specific [place] (1.005-1.030) Urine Protein (Negative) Urine Glucose (UA) (Negative) mg/dL Urine Ketones (Negative) Urine Blood (Negative) Urine Nitrite (Negative) Urine Bilirubin (Negative) Urine Urobilinogen (0.2) mg/dL Ur Leukocyte Esterase (Negative) U Hyaline Cast (Auto) (0-2) /LPF Urine Microscopic RBC (0-5) /HPF Urine Microscopic WBC (0-5) /HPF Ur Epithelial Cells (None Seen) /HPF Urine Bacteria (None Seen) /HPF Urine Culture Reflexed (NO) Influenza Type A Ag (NEGATIVE) Influenza Type B Ag (NEGATIVE) RSV (PCR) (NEGATIVE) SARS-CoV-2 (PCR) (NEGATIVE) Group A Strep Antibody (NEGATIVE) 09/27/24 09/27/24 09/27/24 Range/Units 23:50 23:50 23:50 WBC (4.23-9.07) x10^3/uL RBC (4.63-6.08) x10^6/uL Hgb (13.7-17.5) g/dL Hct (40.1-51.0) % MCV (79.0-92.2) fL MCH (25.7-32.2) pg MCHC (32.3-36.5) g/dL RDW (11.6-14.4) % Plt Count (163-337) x10^3/uL MPV (9.4-12.4) fL Gran % (34.0-67.9) % Immature Gran % (Auto) (0.001-0.429) % Nucleat RBC Rel Count (0.00-0.2) % Eos # (Auto) (0.04-0.54) x10^3/uL Immature Gran # (Auto) (0.001-0.031) x10^3u/L Absolute Lymphs (auto) (1.32-3.57) x10^3/uL Absolute Monos (auto) (0.30-0.82) x10^3/uL Absolute Nucleated RBC (0.00-0.012) x10^3u/L Lymphocytes % (21.8-53.1) % Monocytes % (5.3-12.2) % Eosinophils % (0.8-7.0) % Basophils % (0.2-1.2) % Absolute Granulocytes (1.78-5.38) x10^3/uL Basophils # (0.01-0.08) x10^3/uL pO2/FiO2 Ratio % VBG pH (7.32-7.42) VBG pCO2 at Pat Temp (42-55) mm/Hg VBG pO2 at Pat Temp (25-40) mm/Hg VBG HCO3 (22-28) meq/L VBG O2 Sat (Jumana) (95-100) VBG Base Excess (-2.0-2.0) VBG Hemoglobin VBG Carboxyhemoglobin (0.0-6.9) % T HGB POC Potassium (3.5-5.1) Sodium (135-145) mmol/L Potassium (3.5-5.1) mmol/L Chloride (98-107) mmol/L Carbon Dioxide (22-30) mmol/L Anion Gap (5-15) MEQ/L BUN (9-20) mg/dL Creatinine (0.66-1.25) mg/dL Estimated GFR ML/MIN Glucose (74-106) mg/dL POC Glucometer (74 to 106) mg/dL Lactic Acid 2.4 H (0.4-2.0) Calcium (8.4-10.2) mg/dL Total Bilirubin (0.2-1.3) mg/dL AST (17-59) U/L ALT (0-50) U/L Alkaline Phosphatase (38-126) U/L Troponin I (0.000-0.033) ng/mL Serum Total Protein (6.3-8.2) g/dL Albumin (3.5-5.0) g/dL Amylase (30-110) U/L Lipase (23-300) U/L Urine Color (Yellow) Urine Appearance (Clear) Urine pH (4.6-8.0) Ur Specific [place] (1.005-1.030) Urine Protein (Negative) Urine Glucose (UA) (Negative) mg/dL Urine Ketones (Negative) Urine Blood (Negative) Urine Nitrite (Negative) Urine Bilirubin (Negative) Urine Urobilinogen (0.2) mg/dL Ur Leukocyte Esterase (Negative) U Hyaline Cast (Auto) (0-2) /LPF Urine Microscopic RBC (0-5) /HPF Urine Microscopic WBC (0-5) /HPF Ur Epithelial Cells (None Seen) /HPF Urine Bacteria (None Seen) /HPF Urine Culture Reflexed (NO) Influenza Type A Ag NEGATIVE (NEGATIVE) Influenza Type B Ag NEGATIVE (NEGATIVE) RSV (PCR) NEGATIVE (NEGATIVE) SARS-CoV-2 (PCR) NEGATIVE (NEGATIVE) Group A Strep Antibody NOT DETECTED (NEGATIVE) 09/27/24 09/28/24 09/28/24 Range/Units 23:50 00:56 00:59 WBC (4.23-9.07) x10^3/uL RBC (4.63-6.08) x10^6/uL Hgb (13.7-17.5) g/dL Hct (40.1-51.0) % MCV (79.0-92.2) fL MCH (25.7-32.2) pg MCHC (32.3-36.5) g/dL RDW (11.6-14.4) % Plt Count (163-337) x10^3/uL MPV (9.4-12.4) fL Gran % (34.0-67.9) % Immature Gran % (Auto) (0.001-0.429) % Nucleat RBC Rel Count (0.00-0.2) % Eos # (Auto) (0.04-0.54) x10^3/uL Immature Gran # (Auto) (0.001-0.031) x10^3u/L Absolute Lymphs (auto) (1.32-3.57) x10^3/uL Absolute Monos (auto) (0.30-0.82) x10^3/uL Absolute Nucleated RBC (0.00-0.012) x10^3u/L Lymphocytes % (21.8-53.1) % Monocytes % (5.3-12.2) % Eosinophils % (0.8-7.0) % Basophils % (0.2-1.2) % Absolute Granulocytes (1.78-5.38) x10^3/uL Basophils # (0.01-0.08) x10^3/uL pO2/FiO2 Ratio 21.0 % VBG pH 7.39 (7.32-7.42) VBG pCO2 at Pat Temp 27 L (42-55) mm/Hg VBG pO2 at Pat Temp 55 H (25-40) mm/Hg VBG HCO3 16.3 L* (22-28) meq/L VBG O2 Sat (Jumana) 87.8 L (95-100) VBG Base Excess -6.8 L (-2.0-2.0) VBG Hemoglobin 16.7 VBG Carboxyhemoglobin 3.2 (0.0-6.9) % T HGB POC Potassium 4.4 (3.5-5.1) Sodium (135-145) mmol/L Potassium (3.5-5.1) mmol/L Chloride (98-107) mmol/L Carbon Dioxide (22-30) mmol/L Anion Gap (5-15) MEQ/L BUN (9-20) mg/dL Creatinine (0.66-1.25) mg/dL Estimated GFR ML/MIN Glucose (74-106) mg/dL POC Glucometer 357 H (74 to 106) mg/dL Lactic Acid (0.4-2.0) Calcium (8.4-10.2) mg/dL Total Bilirubin (0.2-1.3) mg/dL AST (17-59) U/L ALT (0-50) U/L Alkaline Phosphatase (38-126) U/L Troponin I (0.000-0.033) ng/mL Serum Total Protein (6.3-8.2) g/dL Albumin (3.5-5.0) g/dL Amylase (30-110) U/L Lipase (23-300) U/L Urine Color Yellow (Yellow) Urine Appearance Clear (Clear) Urine pH 5.5 (4.6-8.0) Ur Specific [place] >=1.030 A (1.005-1.030) Urine Protein Trace A (Negative) Urine Glucose (UA) >=1000 A (Negative) mg/dL Urine Ketones >=160 A (Negative) Urine Blood Negative (Negative) Urine Nitrite Negative (Negative) Urine Bilirubin Negative (Negative) Urine Urobilinogen 0.2 (0.2) mg/dL Ur Leukocyte Esterase Negative (Negative) U Hyaline Cast (Auto) 3-5 A (0-2) /LPF Urine Microscopic RBC 0-2 (0-5) /HPF Urine Microscopic WBC 0-2 (0-5) /HPF Ur Epithelial Cells None Seen (None Seen) /HPF Urine Bacteria None Seen (None Seen) /HPF Urine Culture Reflexed NO (NO) Influenza Type A Ag (NEGATIVE) Influenza Type B Ag (NEGATIVE) RSV (PCR) (NEGATIVE) SARS-CoV-2 (PCR) (NEGATIVE) Group A Strep Antibody (NEGATIVE) 09/28/24 09/28/24 09/28/24 Range/Units 01:55 02:47 04:05 WBC (4.23-9.07) x10^3/uL RBC (4.63-6.08) x10^6/uL Hgb (13.7-17.5) g/dL Hct (40.1-51.0) % MCV (79.0-92.2) fL MCH (25.7-32.2) pg MCHC (32.3-36.5) g/dL RDW (11.6-14.4) % Plt Count (163-337) x10^3/uL MPV (9.4-12.4) fL Gran % (34.0-67.9) % Immature Gran % (Auto) (0.001-0.429) % Nucleat RBC Rel Count (0.00-0.2) % Eos # (Auto) (0.04-0.54) x10^3/uL Immature Gran # (Auto) (0.001-0.031) x10^3u/L Absolute Lymphs (auto) (1.32-3.57) x10^3/uL Absolute Monos (auto) (0.30-0.82) x10^3/uL Absolute Nucleated RBC (0.00-0.012) x10^3u/L Lymphocytes % (21.8-53.1) % Monocytes % (5.3-12.2) % Eosinophils % (0.8-7.0) % Basophils % (0.2-1.2) % Absolute Granulocytes (1.78-5.38) x10^3/uL Basophils # (0.01-0.08) x10^3/uL pO2/FiO2 Ratio % VBG pH (7.32-7.42) VBG pCO2 at Pat Temp (42-55) mm/Hg VBG pO2 at Pat Temp (25-40) mm/Hg VBG HCO3 (22-28) meq/L VBG O2 Sat (Jumana) (95-100) VBG Base Excess (-2.0-2.0) VBG Hemoglobin VBG Carboxyhemoglobin (0.0-6.9) % T HGB POC Potassium (3.5-5.1) Sodium (135-145) mmol/L Potassium (3.5-5.1) mmol/L Chloride (98-107) mmol/L Carbon Dioxide (22-30) mmol/L Anion Gap (5-15) MEQ/L BUN (9-20) mg/dL Creatinine (0.66-1.25) mg/dL Estimated GFR ML/MIN Glucose (74-106) mg/dL POC Glucometer 280 H (74 to 106) mg/dL Lactic Acid 1.6 (0.4-2.0) Calcium (8.4-10.2) mg/dL Total Bilirubin (0.2-1.3) mg/dL AST (17-59) U/L ALT (0-50) U/L Alkaline Phosphatase (38-126) U/L Troponin I < 0.012 (0.000-0.033) ng/mL Serum Total Protein (6.3-8.2) g/dL Albumin (3.5-5.0) g/dL Amylase (30-110) U/L Lipase (23-300) U/L Urine Color (Yellow) Urine Appearance (Clear) Urine pH (4.6-8.0) Ur Specific [place] (1.005-1.030) Urine Protein (Negative) Urine Glucose (UA) (Negative) mg/dL Urine Ketones (Negative) Urine Blood (Negative) Urine Nitrite (Negative) Urine Bilirubin (Negative) Urine Urobilinogen (0.2) mg/dL Ur Leukocyte Esterase (Negative) U Hyaline Cast (Auto) (0-2) /LPF Urine Microscopic RBC (0-5) /HPF Urine Microscopic WBC (0-5) /HPF Ur Epithelial Cells (None Seen) /HPF Urine Bacteria (None Seen) /HPF Urine Culture Reflexed (NO) Influenza Type A Ag (NEGATIVE) Influenza Type B Ag (NEGATIVE) RSV (PCR) (NEGATIVE) SARS-CoV-2 (PCR) (NEGATIVE) Group A Strep Antibody (NEGATIVE) 09/28/24 Range/Units 04:42 WBC (4.23-9.07) x10^3/uL RBC (4.63-6.08) x10^6/uL Hgb (13.7-17.5) g/dL Hct (40.1-51.0) % MCV (79.0-92.2) fL MCH (25.7-32.2) pg MCHC (32.3-36.5) g/dL RDW (11.6-14.4) % Plt Count (163-337) x10^3/uL MPV (9.4-12.4) fL Gran % (34.0-67.9) % Immature Gran % (Auto) (0.001-0.429) % Nucleat RBC Rel Count (0.00-0.2) % Eos # (Auto) (0.04-0.54) x10^3/uL Immature Gran # (Auto) (0.001-0.031) x10^3u/L Absolute Lymphs (auto) (1.32-3.57) x10^3/uL Absolute Monos (auto) (0.30-0.82) x10^3/uL Absolute Nucleated RBC (0.00-0.012) x10^3u/L Lymphocytes % (21.8-53.1) % Monocytes % (5.3-12.2) % Eosinophils % (0.8-7.0) % Basophils % (0.2-1.2) % Absolute Granulocytes (1.78-5.38) x10^3/uL Basophils # (0.01-0.08) x10^3/uL pO2/FiO2 Ratio % VBG pH (7.32-7.42) VBG pCO2 at Pat Temp (42-55) mm/Hg VBG pO2 at Pat Temp (25-40) mm/Hg VBG HCO3 (22-28) meq/L VBG O2 Sat (Jumana) (95-100) VBG Base Excess (-2.0-2.0) VBG Hemoglobin VBG Carboxyhemoglobin (0.0-6.9) % T HGB POC Potassium (3.5-5.1) Sodium (135-145) mmol/L Potassium (3.5-5.1) mmol/L Chloride (98-107) mmol/L Carbon Dioxide (22-30) mmol/L Anion Gap (5-15) MEQ/L BUN (9-20) mg/dL Creatinine (0.66-1.25) mg/dL Estimated GFR ML/MIN Glucose (74-106) mg/dL POC Glucometer 233 H (74 to 106) mg/dL Lactic Acid (0.4-2.0) Calcium (8.4-10.2) mg/dL Total Bilirubin (0.2-1.3) mg/dL AST (17-59) U/L ALT (0-50) U/L Alkaline Phosphatase (38-126) U/L Troponin I (0.000-0.033) ng/mL Serum Total Protein (6.3-8.2) g/dL Albumin (3.5-5.0) g/dL Amylase (30-110) U/L Lipase (23-300) U/L Urine Color (Yellow) Urine Appearance (Clear) Urine pH (4.6-8.0) Ur Specific [place] (1.005-1.030) Urine Protein (Negative) Urine Glucose (UA) (Negative) mg/dL Urine Ketones (Negative) Urine Blood (Negative) Urine Nitrite (Negative) Urine Bilirubin (Negative) Urine Urobilinogen (0.2) mg/dL Ur Leukocyte Esterase (Negative) U Hyaline Cast (Auto) (0-2) /LPF Urine Microscopic RBC (0-5) /HPF Urine Microscopic WBC (0-5) /HPF Ur Epithelial Cells (None Seen) /HPF Urine Bacteria (None Seen) /HPF Urine Culture Reflexed (NO) Influenza Type A Ag (NEGATIVE) Influenza Type B Ag (NEGATIVE) RSV (PCR) (NEGATIVE) SARS-CoV-2 (PCR) (NEGATIVE) Group A Strep Antibody (NEGATIVE) - Radiology Impressions Radiology Exams & Impressions: Radiology Procedures Category Date Time Status ABDOMEN AND PELVIS W/0 CONTRAS [CT] Stat Exams 09/27/24 23:33 Completed - Other Procedures and Tests Respiratory Therapy 09/28/24 04:21 Respiratory Therapy Consult ONCE Assessment/Plan (1) Ketoacidosis due to diabetes mellitus Current Visit: Yes Status: Acute Qualifiers: Diabetes mellitus type: type 2 Diabetes mellitus complication detail: without coma Qualified Code(s): E11.10 - Type 2 diabetes mellitus with ketoacidosis without coma Assessment & Plan: Ketoacidosis likely from dehydration/nausea and vomiting with elevated anion gap of 31 1. Admit to hospital 2. Insulin drip 3. IVFs 4. DVT/GI prophylaxis 5. Monitor ABG prn 6. Watch anion gap for closure Code(s): E11.10 - TYPE 2 DIABETES MELLITUS WITH KETOACIDOSIS WITHOUT COMA (2) Diabetes mellitus with hyperglycemia Current Visit: Yes Status: Acute Qualifiers: Diabetes mellitus type: type 2 Diabetes mellitus long term care social worker insulin use: with long term care social worker use Qualified Code(s): E11.65 - Type 2 diabetes mellitus with hyperglycemia; Z79.4 - intermediate (current) use of insulin Assessment & Plan: Blood sugars under poor control 1. Continue insulin drip 2. Low carb diet with FSBS qAC/HS 3. Check UPC Code(s): E11.65 - TYPE 2 DIABETES MELLITUS WITH HYPERGLYCEMIA (3) Essential (primary) hypertension Current Visit: Yes Status: Acute Assessment & Plan: Blood pressure under reasonable control 1. IVFs for bp support 2. Low Na diet 3. Monitor blood pressure readings Code(s): I10 - ESSENTIAL (PRIMARY) HYPERTENSION (4) Nausea & vomiting Current Visit: Yes Status: Acute Qualifiers: Vomiting type: unspecified Qualified Code(s): R11.2 - Nausea with vomiting, unspecified Assessment & Plan: Likely related to side effect of recently starting Ozempic versus viral GE 1. Hold Ozempic 2. Antiemetics 3. Pain control 4. Clear liquids, advance as tolerated Code(s): R11.2 - NAUSEA WITH VOMITING, UNSPECIFIED Telemedicine Encounter - Telemedicine Encounter Telemedicine Encounter: "The entirety of this encounter was performed via Telemedicine" This visit was performed using real-time audio and video connection between my location and thepatients locationwith the assistance of a surrogateat the patients location. Written or verbal consent was obtained from the patient/guardian to perform this visit [facility]. Any patient questions regarding the telemedicine interaction were answered.
[2024-09-28] MEDS: Sodium Chloride 0.9% 1000 ML 1,000 ML IV SCH (05:46)
[2024-09-28] MEDS ORDERED: D5W/0.45NS W/ 20mEq KCl 1000 ML 1,000 ML IV ONE (05:56)
[2024-09-28] MEDS: D5W/0.45NS W/ 20mEq KCl 1000 ML 1,000 ML IV SCH (06:09)
[2024-09-28] MEDS: TYLENOL 325 MG PO PRN (06:11)
[2024-09-28 06:37] LABS: ANION GAP 19.4 MEQ/L (5-15); Calcium 9.3 mg/dL (8.4-10.2); Creatinine 1 0.89 mg/dL (0.66-1.25); EST GLOMERULAR FILTRATION RATE 105.1 ML/MIN; Potassium 3.8 mmol/L (3.5-5.1)
[2024-09-28] MEDS ORDERED: D50W 50 ml Abboject IV ONE (07:06)
[2024-09-28] MEDS: D50W 50 ml Abboject IV ONE (07:07)
[2024-09-28] MEDS ORDERED: MEDICATION INTERVENTION MC SCH (07:15)
[2024-09-28 07:46] LABS: Hemoglobin 15.5 g/dL (13.7-17.5); Mean Cell Volume 83.2 fL (79.0-92.2); Mean Corpuscular Hgb Concent. 33.7 g/dL (32.3-36.5); Mean Platelet Volume 10.1 fL (9.4-12.4); Platelet Count 299 x10^3/uL (163-337); Red Blood Count 5.53 x10^6/uL (4.63-6.08); Red Cell Distribution Width 12.9 % (11.6-14.4); White Blood Count 10.2 x10^3/uL (4.23-9.07)
[2024-09-28 07:55] LABS: MAGNESIUM 1.7 mg/dL (1.6-2.3); PHOSPHOROUS 3.3 mg/dL (2.5-4.5)
[2024-09-28] MEDS: Miralax Powder 17GM PACKET PO PRN (08:28)
[2024-09-28 08:33] LABS: CREATININE,URINE RANDOM 101.3 MG/DL
[2024-09-28] MEDS: ULTRAM 50 MG PO ONE (08:48)
[2024-09-28] MEDS ORDERED: Glutose 15 GM ORAL GEL PO PRN (08:50)
[2024-09-28] MEDS ORDERED: GlucaGen 1 MG IM PRN (08:50)
[2024-09-28] MEDS ORDERED: Dulcolax 10 MG SUPP RC PRN (09:03)
[2024-09-28] MEDS: D50W 50 ml Abboject IV PRN (09:09)
[2024-09-28] MEDS ORDERED: TYLENOL 325 MG PO PRN (09:13)
[2024-09-28] MEDS ORDERED: ZOFRAN ODT 4 MG PO PRN (09:14)
[2024-09-28] MEDS ORDERED: AMMONIUM LACTATE 12% TP PRN (09:15)
[2024-09-28] MEDS: NEURONTIN PO SCH (09:33)
[2024-09-28] MEDS: Pepcid 20 MG PO SCH (09:34)
[2024-09-28] MEDS: Protonix 40MG Tablet PO SCH (09:34)
[2024-09-28] MEDS: ZOLOFT 50 MG TABLET PO SCH (09:34)
[2024-09-28] MEDS: ATARAX 25 MG PO SCH (09:35)
[2024-09-28] MEDS: AMMONIUM LACTATE 12% TP SCH (09:35)
[2024-09-28 09:36] LABS: ANION GAP 13.9 MEQ/L (5-15); Creatinine 1 0.9 mg/dL (0.66-1.25); EST GLOMERULAR FILTRATION RATE 104.7 ML/MIN; Potassium 3.8 mmol/L (3.5-5.1)
[2024-09-28] MEDS: NICODERM CQ 14 MG TOP SCH (10:57)
[2024-09-28] MEDS: MILK OF MAGNESIA 30 ML PO SCH (10:58)
[2024-09-28] MEDS: ENOXAPARIN SODIUM SQ SCH (10:58)
[2024-09-28] MEDS: Carafate 1 GM PO SCH (10:59)
[2024-09-28] MEDS: Mirapex 0.5 MG Tablet PO ONE (11:43)
[2024-09-28] MEDS: HUMALOG SQ PRN (12:13)
[2024-09-28 16:22] LABS: ANION GAP 13.5 MEQ/L (5-15); Calcium 8.9 mg/dL (8.4-10.2); Creatinine 1 0.73 mg/dL (0.66-1.25); EST GLOMERULAR FILTRATION RATE 111.5 ML/MIN
[2024-09-28] MEDS: Zofran 4 MG/2 ML VIAL IV PRN (16:57)
[2024-09-28] MEDS: Lantus Insulin SQ SCH (21:17)
[2024-09-28] MEDS: DESYREL 50 MG PO SCH (21:20)
[2024-09-28] MEDS: Mirapex 0.5 MG Tablet PO SCH (21:20)
[2024-09-28 21:45] VITALS: O2SAT 96
[2024-09-28] MEDS ORDERED: PRAZOSIN HCL 5 MG PO SCH (22:00)
[2024-09-28 23:29] LABS: ANION GAP 17.1 MEQ/L (5-15); Calcium 8.8 mg/dL (8.4-10.2); Creatinine 1 0.76 mg/dL (0.66-1.25); EST GLOMERULAR FILTRATION RATE 110.2 ML/MIN; Potassium 4.1 mmol/L (3.5-5.1)
[2024-09-29 05:59] VITALS: BP 132/77; RESP 15; TEMP 97.4
[2024-09-29 06:31] LABS: Absolute Neutrophil Ct (ANC) 4.44 x10^3/uL (1.78-5.38); BASOPHIL % 1.1 % (0.2-1.2); Basophil (Absolute #) 0.08 x10^3/uL (0.01-0.08); Eosinophil % 2.7 % (0.8-7.0); Hematocrit 41.8 % (40.1-51.0); Hemoglobin 14.4 g/dL (13.7-17.5); IMMATURE GRAN # 0.01 x10^3u/L (0.001-0.031); IMMATURE GRAN % 0.1 % (0.001-0.429); Lymphocyte (Absolute #) 2.11 x10^3/uL (1.32-3.57); Lymphocytes % 28.7 % (21.8-53.1); Mean Cell Volume 81.5 fL (79.0-92.2); Mean Corpuscular Hemoglobin 28.1 pg (25.7-32.2); Mean Corpuscular Hgb Concent. 34.4 g/dL (32.3-36.5); Mean Platelet Volume 9.9 fL (9.4-12.4); Monocyte (Absolute #) 0.51 x10^3/uL (0.30-0.82); Monocytes % 6.9 % (5.3-12.2); Neutrophil % 60.5 % (34.0-67.9); Platelet Count 261 x10^3/uL (163-337); Red Blood Count 5.13 x10^6/uL (4.63-6.08); White Blood Count 7.4 x10^3/uL (4.23-9.07)
[2024-09-29 06:49] LABS: ALBUMIN 4.1 g/dL (3.5-5.0); ANION GAP 14.8 MEQ/L (5-15); BILIRUBIN,TOTAL 0.7 mg/dL (0.2-1.3); Calcium 8.9 mg/dL (8.4-10.2); Creatinine 1 0.71 mg/dL (0.66-1.25); EST GLOMERULAR FILTRATION RATE 112.5 ML/MIN; MAGNESIUM 1.8 mg/dL (1.6-2.3); Potassium 4.3 mmol/L (3.5-5.1); Total Protein 7.2 g/dL (6.3-8.2)
--- NOTE | 2024-09-29 09:07 | PCM.DS ---
Discharge Summary Date of Admission: 09/28/24 04:18 Date of Discharge: 09/29/24 Admitting Physician: ASHA MONTGOMERY MD Primary Care Provider: ENVIVE Allergies Allergies No Known Drug Allergies Allergy (Verified 07/21/24 16:54) Hospital Summary - Hospital Course Hospital Course: Mr. ROTH is a 49 year old male with a past medical history significant for hypertension, diabetes and hyperlipidemia who started Ozempic about two weeks ago presented to the hospital with complaints of LLQ abdominal pain associated with nausea and vomiting. Upon arrival, he was found to have an elevated blood sugar with chemistries showing a bicarb of 13. ABG demonstrated a normal pH though. No fever/chills. No chest pain or shortness of breath. No current nausea, vomiting or diarrhea. No dysuria, hematuria or foamy urine. U/A showed a UrSG > 1.030 with 4+ ketones and 3+ glucose. DKA protocol started and has since resolved. He would like to d/c today back to [facility]. He denies CP, SOB, abd. pain, N/V/D. Glucose is now well controlled. Will d/c Ozempic and start s/s humalog insulin at [facility]. - Vitals & Intake/Output Vital Signs: Vital Signs Temperature 97.4 F 09/29/24 04:46 Pulse Rate 79 09/29/24 04:46 Respiratory Rate 15 09/29/24 04:46 Blood Pressure 132/77 09/29/24 04:46 O2 Sat by Pulse Oximetry 96 09/29/24 04:46 Intake & Output: Intake & Output 09/26/24 09/27/24 09/28/24 09/29/24 11:59 11:59 11:59 11:59 Intake Total 1248 600 Output Total 125 1300 Balance 1123 -700 Weight 91.6 kg 91.5 kg - Lab Result Diagrams: 09/29/24 06:24 09/29/24 06:24 Lab Results-Last 24 Hrs: Lab Results-Last 24 Hours 09/28/24 09/28/24 09/28/24 Range/Units 09:06 09:23 10:56 WBC (4.23-9.07) x10^3/uL RBC (4.63-6.08) x10^6/uL Hgb (13.7-17.5) g/dL Hct (40.1-51.0) % MCV (79.0-92.2) fL MCH (25.7-32.2) pg MCHC (32.3-36.5) g/dL RDW (11.6-14.4) % Plt Count (163-337) x10^3/uL MPV (9.4-12.4) fL Gran % (34.0-67.9) % Immature Gran % (Auto) (0.001-0.429) % Nucleat RBC Rel Count (0.00-0.2) % Eos # (Auto) (0.04-0.54) x10^3/uL Immature Gran # (Auto) (0.001-0.031) x10^3u/L Absolute Lymphs (auto) (1.32-3.57) x10^3/uL Absolute Monos (auto) (0.30-0.82) x10^3/uL Absolute Nucleated RBC (0.00-0.012) x10^3u/L Lymphocytes % (21.8-53.1) % Monocytes % (5.3-12.2) % Eosinophils % (0.8-7.0) % Basophils % (0.2-1.2) % Absolute Granulocytes (1.78-5.38) x10^3/uL Basophils # (0.01-0.08) x10^3/uL Sodium 142 (135-145) mmol/L Potassium 3.8 (3.5-5.1) mmol/L Chloride 106 (98-107) mmol/L Carbon Dioxide 26 (22-30) mmol/L Anion Gap 13.9 (5-15) MEQ/L BUN 24 H (9-20) mg/dL Creatinine 0.90 (0.66-1.25) mg/dL Estimated GFR 104.7 ML/MIN Glucose 137 H (74-106) mg/dL POC Glucometer 38 L* 203 H (50 to 500) mg/dL Calcium 9.0 (8.4-10.2) mg/dL Magnesium (1.6-2.3) mg/dL Total Bilirubin (0.2-1.3) mg/dL AST (17-59) U/L ALT (0-50) U/L Alkaline Phosphatase (38-126) U/L Serum Total Protein (6.3-8.2) g/dL Albumin (3.5-5.0) g/dL 09/28/24 09/28/24 09/28/24 Range/Units 12:04 16:00 16:52 WBC (4.23-9.07) x10^3/uL RBC (4.63-6.08) x10^6/uL Hgb (13.7-17.5) g/dL Hct (40.1-51.0) % MCV (79.0-92.2) fL MCH (25.7-32.2) pg MCHC (32.3-36.5) g/dL RDW (11.6-14.4) % Plt Count (163-337) x10^3/uL MPV (9.4-12.4) fL Gran % (34.0-67.9) % Immature Gran % (Auto) (0.001-0.429) % Nucleat RBC Rel Count (0.00-0.2) % Eos # (Auto) (0.04-0.54) x10^3/uL Immature Gran # (Auto) (0.001-0.031) x10^3u/L Absolute Lymphs (auto) (1.32-3.57) x10^3/uL Absolute Monos (auto) (0.30-0.82) x10^3/uL Absolute Nucleated RBC (0.00-0.012) x10^3u/L Lymphocytes % (21.8-53.1) % Monocytes % (5.3-12.2) % Eosinophils % (0.8-7.0) % Basophils % (0.2-1.2) % Absolute Granulocytes (1.78-5.38) x10^3/uL Basophils # (0.01-0.08) x10^3/uL Sodium 137 (135-145) mmol/L Potassium 4.0 (3.5-5.1) mmol/L Chloride 106 (98-107) mmol/L Carbon Dioxide 22 (22-30) mmol/L Anion Gap 13.5 (5-15) MEQ/L BUN 20 (9-20) mg/dL Creatinine 0.73 (0.66-1.25) mg/dL Estimated GFR 111.5 ML/MIN Glucose 228 H (74-106) mg/dL POC Glucometer 249 H 239 H (50 to 500) mg/dL Calcium 8.9 (8.4-10.2) mg/dL Magnesium (1.6-2.3) mg/dL Total Bilirubin (0.2-1.3) mg/dL AST (17-59) U/L ALT (0-50) U/L Alkaline Phosphatase (38-126) U/L Serum Total Protein (6.3-8.2) g/dL Albumin (3.5-5.0) g/dL 09/28/24 09/28/24 09/29/24 Range/Units 21:19 23:15 06:24 WBC 7.4 (4.23-9.07) x10^3/uL RBC 5.13 (4.63-6.08) x10^6/uL Hgb 14.4 (13.7-17.5) g/dL Hct 41.8 (40.1-51.0) % MCV 81.5 (79.0-92.2) fL MCH 28.1 (25.7-32.2) pg MCHC 34.4 (32.3-36.5) g/dL RDW 13.0 (11.6-14.4) % Plt Count 261 (163-337) x10^3/uL MPV 9.9 (9.4-12.4) fL Gran % 60.5 (34.0-67.9) % Immature Gran % (Auto) 0.1 (0.001-0.429) % Nucleat RBC Rel Count 0.0 (0.00-0.2) % Eos # (Auto) 0.20 (0.04-0.54) x10^3/uL Immature Gran # (Auto) 0.01 (0.001-0.031) x10^3u/L Absolute Lymphs (auto) 2.11 (1.32-3.57) x10^3/uL Absolute Monos (auto) 0.51 (0.30-0.82) x10^3/uL Absolute Nucleated RBC 0.00 (0.00-0.012) x10^3u/L Lymphocytes % 28.7 (21.8-53.1) % Monocytes % 6.9 (5.3-12.2) % Eosinophils % 2.7 (0.8-7.0) % Basophils % 1.1 (0.2-1.2) % Absolute Granulocytes 4.44 (1.78-5.38) x10^3/uL Basophils # 0.08 (0.01-0.08) x10^3/uL Sodium 137 (135-145) mmol/L Potassium 4.1 (3.5-5.1) mmol/L Chloride 103 (98-107) mmol/L Carbon Dioxide 21 L (22-30) mmol/L Anion Gap 17.1 H (5-15) MEQ/L BUN 19 (9-20) mg/dL Creatinine 0.76 (0.66-1.25) mg/dL Estimated GFR 110.2 ML/MIN Glucose 272 H (74-106) mg/dL POC Glucometer 283 H (50 to 500) mg/dL Calcium 8.8 (8.4-10.2) mg/dL Magnesium (1.6-2.3) mg/dL Total Bilirubin (0.2-1.3) mg/dL AST (17-59) U/L ALT (0-50) U/L Alkaline Phosphatase (38-126) U/L Serum Total Protein (6.3-8.2) g/dL Albumin (3.5-5.0) g/dL 09/29/24 09/29/24 Range/Units 06:24 07:27 WBC (4.23-9.07) x10^3/uL RBC (4.63-6.08) x10^6/uL Hgb (13.7-17.5) g/dL Hct (40.1-51.0) % MCV (79.0-92.2) fL MCH (25.7-32.2) pg MCHC (32.3-36.5) g/dL RDW (11.6-14.4) % Plt Count (163-337) x10^3/uL MPV (9.4-12.4) fL Gran % (34.0-67.9) % Immature Gran % (Auto) (0.001-0.429) % Nucleat RBC Rel Count (0.00-0.2) % Eos # (Auto) (0.04-0.54) x10^3/uL Immature Gran # (Auto) (0.001-0.031) x10^3u/L Absolute Lymphs (auto) (1.32-3.57) x10^3/uL Absolute Monos (auto) (0.30-0.82) x10^3/uL Absolute Nucleated RBC (0.00-0.012) x10^3u/L Lymphocytes % (21.8-53.1) % Monocytes % (5.3-12.2) % Eosinophils % (0.8-7.0) % Basophils % (0.2-1.2) % Absolute Granulocytes (1.78-5.38) x10^3/uL Basophils # (0.01-0.08) x10^3/uL Sodium 136 (135-145) mmol/L Potassium 4.3 (3.5-5.1) mmol/L Chloride 105 (98-107) mmol/L Carbon Dioxide 20 L (22-30) mmol/L Anion Gap 14.8 (5-15) MEQ/L BUN 18 (9-20) mg/dL Creatinine 0.71 (0.66-1.25) mg/dL Estimated GFR 112.5 ML/MIN Glucose 246 H (74-106) mg/dL POC Glucometer 228 H (50 to 500) mg/dL Calcium 8.9 (8.4-10.2) mg/dL Magnesium 1.8 (1.6-2.3) mg/dL Total Bilirubin 0.70 (0.2-1.3) mg/dL AST 26 (17-59) U/L ALT 19 (0-50) U/L Alkaline Phosphatase 70 (38-126) U/L Serum Total Protein 7.2 (6.3-8.2) g/dL Albumin 4.1 (3.5-5.0) g/dL Micro Results-Entire Visit: Accuchecks Date 09/29/24 Date 09/28/24 Time 07:29 Time 16:53 - Radiology Exams Ordered Rad Exams-Entire Visit: Radiology Procedures Category Date Time Status ABDOMEN AND PELVIS W/0 CONTRAS [CT] Stat Exams 09/27/24 23:33 Completed - Procedures and Test Procedures and Tests throughout Hospitalization: Therapy Orders & Screens 09/28/24 04:21 Respiratory Therapy Consult ONCE Comment: Reason For Exam: 09/28/24 05:06 Smoking Cessation Education ONCE Comment: Diagnosis: Early DKA, ozempic reaction Smoking Status: Current every day smoker How long have you smoked: 31 years Have you smoked in the past 12 months: Yes Approximately how many cigarettes per day: 5 cigarettes/day Do you dip or chew tobacco: Yes 09/28/24 07:30 ST Screen per Nursing Assess ONCE Comment: Protocol Order Physician Instructions: Greater than [address] Admission Screening Reason For Exam: Triggered on Admission Diagnosis: Early DKA, ozempic reaction CVA/Dyshpagia/Aphasia: No Cognitive Deficits: No Dehydration/Nutrition Deficit: No Reflux: No Oral-Motor Difficulties: No Pneumonia: No Detention Resident: Yes Total Points: 5 Discharge Exam General Appearance: no apparent distress, alert Neurologic Exam: alert, oriented x 3, cooperative, normal mood/affect, nml cerebellar function, sensation nml, No motor deficits Eye Exam: PERRL, EOMI, eyes nml inspection Ears, Nose, Throat Exam: normal ENT inspection, pharynx normal, moist mucous membranes Neck Exam: normal inspection, non-tender, supple, full range of motion Respiratory Exam: normal breath sounds, lungs clear, No respiratory distress Cardiovascular Exam: regular rate/rhythm, normal heart sounds Gastrointestinal/Abdomen Exam: soft, No tenderness, No mass Male Genitalia Exam: deferred Rectal Exam: deferred Back Exam: normal inspection, normal range of motion, No CVA tenderness, No vertebral tenderness Extremity Exam: normal inspection, normal range of motion Skin Exam: normal color, warm, dry Final Diagnosis/Problem List - Final Discharge Diagnosis/Problem (1) Ketoacidosis due to diabetes mellitus Current Visit: Yes Status: Resolved Assessment & Plan: - ICU tele - DKA protocol - resolved since admission - A1C 08/08/24- 9.86- uncontrolled - Stop ozempic - Accuchecks ac/hs - Humalog s/s - Continue Humalog 7 units AC and Lantus 15 units at HS Code(s): E11.10 - TYPE 2 DIABETES MELLITUS WITH KETOACIDOSIS WITHOUT COMA (2) Diabetes mellitus with hyperglycemia Current Visit: Yes Status: Acute Assessment & Plan: Carb const. diet - See above plan Code(s): E11.65 - TYPE 2 DIABETES MELLITUS WITH HYPERGLYCEMIA (3) Essential (primary) hypertension Current Visit: Yes Status: Chronic Assessment & Plan: - BP well controlled Code(s): I10 - ESSENTIAL (PRIMARY) HYPERTENSION (4) Nausea & vomiting Current Visit: Yes Status: Resolved Assessment & Plan: - resolved since admission - CT abd. negative for acute concern - associated abd. pain resolved Code(s): R11.2 - NAUSEA WITH VOMITING, UNSPECIFIED (5) Smoker Current Visit: Yes Status: Chronic Assessment & Plan: - nicotine patch, advised cessation Code(s): F17.200 - NICOTINE DEPENDENCE, UNSPECIFIED, UNCOMPLICATED - Discharge Discharge Date: 09/29/24 Disposition: DC TO ANY "OTHER" LONGTERM Condition: Stable Prescriptions: Continue Sucralfate 1 gm [Carafate 1 GM] 1 g PO QID Melatonin 10 mg PO HS Gabapentin 600 mg PO TID Prazosin HCl 10 mg PO HS Insulin Lispro [Humalog] 7 unit SQ AC Pantoprazole 20 mg [Protonix 20MG Tablet] 40 mg PO BID Famotidine 20 mg [Pepcid 20 MG] 20 mg PO BID hydrOXYzine pamoate [Hydroxyzine Pamoate] 50 mg PO BID Insulin Glargine [Lantus Insulin] 15 unit SQ HS Acetaminophen [Acetaminophen ER] 650 mg PO Q6H PRN PRN PRN Reason: Pain Trazodone HCl 50 mg [Desyrel 50 mg] 50 mg PO HS Bisacodyl 10 mg [Dulcolax 10 MG SUPP] 10 mg RC DAILY PRN PRN PRN Reason: Constipation Magnesium Hydroxide 30 ml [Milk of Magnesia 30 ml] 30 ml PO DAILY Pramipexole Di-HCl [Pramipexole Dihydrochloride] 1 mg PO HS ondansetron HCL [Ondansetron HCl] 4 mg PO Q6H PRN PRN PRN Reason: Nausea/Vomiting Sertraline HCl [Zoloft] 100 mg PO DAILY Insulin Lispro [Humalog Kwikpen U-100] 7 unit SQ AC Ammonium Lactate 1 ml MC BID Non-Formulary Drug [Non-Formulary Item] 1 applic TOP TID PRN PRN Reason: Neck pain Ammonium Lactate See Rx Instructions .ROUTE .COMPLEX PRN PRN Reason: dry skin Non-Formulary Drug [Non-Formulary Item] 1 applic RC DAILY PRN PRN Reason: Constipation Non-Formulary Drug [Non-Formulary Item] 1 mg PO BID Glucagon [Gvoke Hypopen 1-Pack] 1 mg SQ UD PRN PRN Reason: low blood sugar Discontinued Semaglutide [Ozempic] 0.25 mg SQ WEEKLY Instructions: Diabetic ketoacidosis, Semaglutide, Type 2 diabetes Follow up with: ENVIVE,ENVIVE [Primary Care Provider] -
[2024-09-29 09:15] VITALS: PULSE 77
[2024-09-29] MEDS ORDERED: HUMALOG SQ SCH (11:30)
[2024-09-29] MEDS ORDERED: NON-FORMULARY ITEM (Insulin Lispro 1 UNIT Ml) SQ SCH (11:30)
== END 2024-09-29 10:52 ==
LOC: ED 23:24 → ICU 09-28 04:18
PROVIDERS: ADMIT Internal Medicine Nephrology; ATTEND Internal Medicine Nephrology
DX: E11.10 Type 2 diabetes mellitus with ketoacidosis without coma (principal); E11.65 Type 2 diabetes mellitus with hyperglycemia; I10 Essential (primary) hypertension; R11.2 Nausea with vomiting, unspecified; F17.200 Nicotine dependence, unspecified, uncomplicated; E78.5 Hyperlipidemia, unspecified; Z79.899 Other long term (current) drug therapy
CPT/HCPCS: 0241U; 36415; 74176; 80048; 80053; 81001; 82150; 82570; 82805; 82947; 83605; 83690; 83735; 84100; 84156; 84300; 84484; 85025; 85027; 87651; 93005; 96374; 96375; 99285; 93268; 96360; J1171; J1650; J1815; J1817; J2405; Q3014; A9270-GY; G0378